=== PATIENT | female | born 1955 | race Caucasian/White ===

== ENCOUNTER → 2019-09-07 | Outpatient (CLI) | payer MEDICARE, OTHER ==
[~2019-09-07] MED LIST: ASPI81EC PO; Adult Low Dose81 MG PO; Augmentin 875-1 EACH PO; DULO30; DULO60; HYDACE10B PO; HYDACE5 PO; HYDR1TAB94 PO; LISI20 PO; Multivitamin1 EAC1 PO; Norco 5-325 Ta1 EACH PO; PANT20 PO; PRAV20; PRAV20 PO; Percocet 5-3251 EACH PO; SIMV20; TELM40; Zofran Odt4 MG SL
[2019-09-09 08:08] LABS: Stool Occult Bld Immuno 1 Negative (NEGATIVE)
== END | disposition home or self-care (01) ==
LOC: LAB SHORT 12:00 → LAB 12:00
PROVIDERS: Nurse Practitioner Family
DX: Z12.11 Encounter for screening for malignant neoplasm of colon (principal)
CPT/HCPCS: G0328

== ENCOUNTER 2019-09-09 15:44 | Emergency (ER) | payer MEDICARE, OTHER ==
[~2019-09-09] VITALS: Ht 167.6 cm; Wt 65.8 kg
[~2019-09-09 15:44] MED LIST changes: -HYDR1TAB94 PO; -Norco 5-325 Ta1 EACH PO
[2019-09-09] MEDS ORDERED: Norco 5-325 Ta1 EACH PO (18:35)
[2019-09-09] MEDS ORDERED: HYDR1TAB94 PO (18:36)
== END 2019-09-09 18:40 | disposition home or self-care (01) ==
LOC: ER 15:44
DX: I73.9 Peripheral vascular disease, unspecified (principal); M79.675 Pain in left toe(s); I10 Essential (primary) hypertension; E78.00 Pure hypercholesterolemia, unspecified; Z88.8 Allergy status to other drugs, medicaments and biological substances; Z79.899 Other long term (current) drug therapy; Z87.891 Personal history of nicotine dependence
CPT/HCPCS: 93926; 99283-25

== ENCOUNTER 2021-09-03 10:02 | Inpatient (IN) | payer MEDICARE, OTHER ==
[~2021-09-03] VITALS: Ht 167.6 cm; Wt 65.0 kg
[~2021-09-03 10:02] MED LIST changes: +AMLO5 PO; +BUPR150ER PO; +CLOP75 PO; +GABA300 PO; +HYDR1TAB94 PO; +Norco 5-325 Ta1 EACH PO; +PROAIR DIGIHAL90 MCG INH
[2021-09-03 11:27] LABS: Alanine Aminotransfer (ALT/SGP 14 U/L (12-78); Albumin, Blood 3.7 g/dL (3.4-5.0); Alk Phos 57 U/L (50-136); Anion Gap 10 mmol/L (6-16); Aspartate Aminotrans (AST/SGOT 10 U/L (12-37); Bilirubin, Total 0.3 mg/dL (0.1-1.0); Blood Urea Nitrogen 59 mg/dL (8-24); Bun/Creatinine Ratio 17.8 (12.0-20.0); CO2, Blood 19 mmol/L (21-32); Calcium, Blood 8.8 mg/dL (8.5-10.1); Chloride, Blood 105 mmol/L (98-108); Creatinine, Blood 3.31 mg/dL (0.40-1.00); Ethanol (Alcohol), Blood, Med <3 mg/dL; Globulin, Blood 3.6 g/dL (2.2-4.0); Glomerular Filtration Rate 14 (60-); Glucose, Blood 106 mg/dL (70-99); Potassium, Blood 4.4 mmol/L (3.5-5.5); Sodium, Blood 134 mmol/L (136-145); Total Protein, Blood 7.3 g/dL (6.4-8.2)
[2021-09-03 12:01] LABS: BASOPHILS ABSOLUTE AUTO 0.03 K/mm3 (0.00-0.23); BASOPHILS PERCENT AUTO 0 % (0-2); EOSINOPHILS ABSOLUTE AUTO 0.16 K/mm3 (0.00-0.68); EOSINOPHILS PERCENT AUTO 2 % (0-6); IMMATURE GRAN ABSOLUTE AUTO 0.08 K/mm3 (0.00-0.10); IMMATURE GRAN PERCENT AUTO 1 % (0-1); LYMPHOCYTES ABSOLUTE AUTO 0.79 K/mm3 (0.84-5.20); LYMPHOCYTES PERCENT AUTO 10 % (21-46); MONOCYTES ABSOLUTE AUTO 0.96 K/mm3 (0.16-1.47); MONOCYTES PERCENT AUTO 12 % (4-13); Mean Corpuscular HGB 26.1 pg (26.0-34.0); Mean Corpuscular Volume 90 fL (80-100); Mean Platelet Volume 8.9 fL (9.1-12.4); NEUTROPHILS ABSOLUTE AUTO 5.86 K/mm3 (1.96-9.15); NEUTROPHILS PERCENT AUTO 74 % (41-73); NRBC ABSOLUTE 0.07 K/mm3 (0.00-0.02); NRBC Auto 0.9 /100 WBC (0.0-0.2); Platelet Count 639 K/mm3 (150-400); RDW Coefficient Variation 24.8 % (11.7-14.2); Red Blood Cell Count 1.19 M/mm3 (3.80-5.20); White Blood Cell Count 7.88 K/mm3 (4.00-11.30)
[2021-09-03 12:04] LABS: Hemoglobin 3.1 g/dL (11.5-16.0)
[2021-09-03 12:05] LABS: Hematocrit 10.7 % (33.0-51.0)
[2021-09-03] MEDS ORDERED: CYCL10 PO (12:20)
[2021-09-03] MEDS ORDERED: GABA300 PO (12:21)
[2021-09-03 13:50] LABS: U Amphetamine Screen Not Detected; U Barbituate Screen Not Detected; U Benzodiazapine Screen Not Detected; U Buprenorphine Screen Not Detected; U Cannabinoids Screen DETECTED; U Cocaine Screen Not Detected; U Methadone Screen Not Detected; U Methamphetamine Screen Not Detected; U Opiates Screen Not Detected; U Oxycodone Screen Not Detected; U Phencyclidine Screen Not Detected; U Propoxyphene Screen Not Detected
[2021-09-03 15:18] LABS: International Normalized Ratio 1.01; Prothrombin Time Results 10.6 Sec (9.7-11.5)
[2021-09-03 18:04] LABS: Influenza A, PCR NEGATIVE (NEGATIVE); Influenza B, PCR NEGATIVE (NEGATIVE); Resp Syncytial Virus, PCR NEGATIVE (NEGATIVE); SARS-Cov-2 (COVID-19) PCR, MMC NEGATIVE (NEGATIVE)
--- NOTE | 2021-09-03 18:27 | NUR ---
ALERT AND ORIENTED, MAKES NEEDS KNOWN, CALL LIGHT WITH IN REACH, DENIES NV, DIZZYNESS. LEFT SIDED DEFICIT RESOLVED, EQUAL GRASP, EQUAL FACIAL EXPRESIONS, EQUAL STRENGTH IN LEFT ARM AND LEG. LS CLEAR 98% ON RA. HTN SBP 160-180S, LAST BM 09/02/21. RECEIVED TWO UNITS PRBC, ONE MORE TO BE GIVEN PER DR MORLEY, H&H 2 HOURS AFTER IT IS COMPLETED, NPO, ACTIVE BT. NEGATIVE COVID, NO CTAs DONE DUE TO PATIENTS CREATINIE OF 3.31. DR MORLEY TO LILY OGDEN, WILL RELAY TO PM RN, WCTM
--- NOTE | 2021-09-03 19:17 | NUR ---
REPORTED PATIENT REQUEST FOR A NICOTINE PACTH, SBP 160-180S, LEFT FLANK PAIN TO DR MEMBRENO. NEW ORDERS FOR NICOTINE PATCH, FENTANYL, AND HYDRALAZINE. DR MORLEY ROUNDED, PATIENT CAN HAVE CLEAR LIQUID DIET UNTIL MIDNIGHT, FROM MIDNIGHT UNTIL 09/04/21 1200 SHE CAN HAVE MUCH WATER SHE WOULD LIKE, RELAYED TO PM RN
[2021-09-03 23:53] LABS: Hemoglobin 7.3 g/dL (11.5-16.0)
[2021-09-04 03:11] LABS: Hematocrit 22.7 % (33.0-51.0); Hemoglobin 7.6 g/dL (11.5-16.0); Mean Corpuscular HGB 28.6 pg (26.0-34.0); Mean Corpuscular HGB Conc 33.5 g/dL (31.5-36.5); Mean Platelet Volume 8.1 fL (9.1-12.4); NRBC ABSOLUTE 0.08 K/mm3 (0.00-0.02); NRBC Auto 0.8 /100 WBC (0.0-0.2); Platelet Count 412 K/mm3 (150-400); RDW Coefficient Variation 18.9 % (11.7-14.2); RDW Standard Deviation 57.5 fL (35.1-46.3); Red Blood Cell Count 2.66 M/mm3 (3.80-5.20); White Blood Cell Count 10.34 K/mm3 (4.00-11.30)
[2021-09-04 03:13] LABS: Mean Corpuscular Volume 85 fL (80-100)
[2021-09-04 03:26] LABS: Bun/Creatinine Ratio 18.6 (12.0-20.0); Calcium, Blood 8.9 mg/dL (8.5-10.1); Creatinine, Blood 2.79 mg/dL (0.40-1.00)
--- NOTE | 2021-09-04 06:02 | NUR ---
END OF SHIFT SUMMARY: PT REMAINS AOX4, VERY PLEASANT AND COOPERATIVE. PT DID COMPLAIN OF SEVERE HEADACHE, BACK PAIN AND LEFT FLANK PAIN. GAVE PRN ORAL AND IV PAIN MEDICATION TO HELP ALLEVIATE DISOCMFORT AND PAIN. NO LEFT SIDED DEFICIT OR WEAKNESS, EQUAL STRENGTH AND SYMMENTRY BILATERAL. ON RA, HYPERTENSIVE DESPITE HYDRALAZINE GIVEN. PT WAS ABLE TO VOID, CLOUDY YELLOW OUTPUT. NPO FOR UPCOMING PROCEDURE. SALINE LOCKED.
--- NOTE | 2021-09-04 08:58 | NUR ---
ASSUMED CARE OF PATIENT: AOX4, COMPLAINS OF 8/10 HEADACHE PAIN, 50MCG FENT GIVEN, NO BM OVERNIGHT, BP HTN 160S, 10MG HYDRALAZINE GIVEN, VSS OTHERWISE ON RA, LUNGS CLEAR, REMAINS NPO, RECENT HGB 7.6, EGD PLANNED FOR 1300, WILL CONTINUE TO MONITOR.
[2021-09-04 10:01] LABS: Percent Saturation 71.7 % (15.0-50.0)
[2021-09-04 10:28] LABS: Hematocrit 23.8 % (33.0-51.0); Hemoglobin 7.9 g/dL (11.5-16.0); Mean Corpuscular HGB 28.3 pg (26.0-34.0); Mean Corpuscular HGB Conc 33.2 g/dL (31.5-36.5); Mean Corpuscular Volume 85 fL (80-100); Mean Platelet Volume 8.1 fL (9.1-12.4); NRBC ABSOLUTE 0.08 K/mm3 (0.00-0.02); NRBC Auto 0.9 /100 WBC (0.0-0.2); Platelet Count 448 K/mm3 (150-400); RDW Coefficient Variation 18.9 % (11.7-14.2); RDW Standard Deviation 57.7 fL (35.1-46.3); Red Blood Cell Count 2.79 M/mm3 (3.80-5.20); White Blood Cell Count 9.26 K/mm3 (4.00-11.30)
--- NOTE | 2021-09-04 15:04 | NUR ---
INTO SDS VIA GURNEY FROM ICU ROOM.PT MED W/TELE STATUS PER END MAKER. History, Chart, Medications and Allergies reviewed before start of procedure.Patient confirms NPO status and agrees with scheduled surgery.WHEEZES T/O LEFT LOBE.ANESTHESIA NOTIFIED AND ORDERS PLACED.PT A&O X4.
--- NOTE | 2021-09-04 15:17 | NUR ---
09/04/21 1517 SAAD NEAL History, Chart, Medications and Allergies reviewed before start of procedure. MONITOR INTACT WITH CONTINUOUS PULSE OXIMETRY AND INTERMITTENT BP. 3-LEAD EKG REVIEWED WITH PHYSICIAN PRIOR TO START OF PROCEDURE. O2 VIA POM INTACT THROUGHOUT SEDATION/PROCEDURE. GENERAL WITH DR. VALENCIA.
--- NOTE | 2021-09-04 15:24 | NUR ---
PT RING REMOVED AND PLACED IN LABELED BAG IN PT CHART
--- NOTE | 2021-09-04 16:15 | NUR ---
DR. DALTON CONSULTING WITH PT.
--- NOTE | 2021-09-04 17:32 | NUR ---
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
[2021-09-05 05:22] LABS: Hematocrit 22.4 % (33.0-51.0); Hemoglobin 7.4 g/dL (11.5-16.0); Mean Corpuscular HGB 28.1 pg (26.0-34.0); Mean Corpuscular Volume 85 fL (80-100); Mean Platelet Volume 8.1 fL (9.1-12.4); NRBC ABSOLUTE 0.04 K/mm3 (0.00-0.02); NRBC Auto 0.5 /100 WBC (0.0-0.2); Platelet Count 433 K/mm3 (150-400); RDW Standard Deviation 57.1 fL (35.1-46.3); Red Blood Cell Count 2.63 M/mm3 (3.80-5.20); White Blood Cell Count 7.99 K/mm3 (4.00-11.30)
[2021-09-05 05:45] LABS: Albumin, Blood 3.3 g/dL (3.4-5.0); Albumin/Globulin Ratio 1.1 (0.8-1.8); Bilirubin, Total 0.5 mg/dL (0.1-1.0); Bun/Creatinine Ratio 21.2 (12.0-20.0); Calcium, Blood 8.8 mg/dL (8.5-10.1); Creatinine, Blood 1.98 mg/dL (0.40-1.00); Potassium, Blood 4.5 mmol/L (3.5-5.5); Total Protein, Blood 6.3 g/dL (6.4-8.2)
--- NOTE | 2021-09-05 08:10 | NUR ---
ADVISED PATIENT WAS ON PROTONIX BID YESTERDAY AND GOT MORNING DOSE THEN WAS CANCELLED. MD TO CHECK CHART.
[2021-09-05 08:51] LABS: Percent Saturation 23.4 % (15.0-50.0)
--- NOTE | 2021-09-05 14:16 | NUR ---
PATIENT DAUGHTER,VICKEY, UPDATED.
--- NOTE | 2021-09-05 16:58 | NUR ---
ALERT. ORIENTED. PATIENT RING THAT WAS TAKEN OFF PRIOR TO PROCEDURE GIVEN BACK TO PATIENT. PATIENT C/O HEADACHE WITH CAFFEINE HELPING. IV'S X 2 PATENT WITH ONE INFUSING LR AT 100ML/HR. INDEPENDENT IN ROOM. UNLABORED RESPIRATIONS. NO B.M TODAY. ADVISED TO NOT FLUSH WHEN SHE DOES GO SO STAFF CAN CHECK FOR ANY BLOOD. GOOD APPETITE. WCTM
[2021-09-06 05:00] LABS: Hematocrit 21.7 % (33.0-51.0); Hemoglobin 6.8 g/dL (11.5-16.0); Mean Corpuscular HGB 27.4 pg (26.0-34.0); Mean Corpuscular HGB Conc 31.3 g/dL (31.5-36.5); Mean Corpuscular Volume 88 fL (80-100); NRBC ABSOLUTE 0.04 K/mm3 (0.00-0.02); NRBC Auto 0.5 /100 WBC (0.0-0.2); Platelet Count 366 K/mm3 (150-400); RDW Coefficient Variation 18.7 % (11.7-14.2); RDW Standard Deviation 58.5 fL (35.1-46.3); Red Blood Cell Count 2.48 M/mm3 (3.80-5.20); White Blood Cell Count 8.12 K/mm3 (4.00-11.30)
[2021-09-06 05:10] LABS: Albumin, Blood 3.1 g/dL (3.4-5.0); Bilirubin, Total 0.4 mg/dL (0.1-1.0); Bun/Creatinine Ratio 23.1 (12.0-20.0); Calcium, Blood 8.7 mg/dL (8.5-10.1); Creatinine, Blood 1.69 mg/dL (0.40-1.00); Globulin, Blood 3.2 g/dL (2.2-4.0); Potassium, Blood 4.3 mmol/L (3.5-5.5); Total Protein, Blood 6.3 g/dL (6.4-8.2)
[2021-09-06 05:12] LABS: Source, Urine Voided
[2021-09-06 05:17] LABS: Bilirubin, Urine Neg (Neg); Blood, Urine 1+ (Neg); Glucose Qualitative, Urine Neg (Neg); Ketones, Urine Neg (Neg); Leukocyte Esterase, Urine Neg (Neg); Nitrite, Urine Neg (Neg); Protein, Urine 1+ (Neg); Specific Gravity, Urine 1.015 (1.003-1.022); Urobilinogen, Urine NORM (Normal)
--- NOTE | 2021-09-06 05:17 | NUR ---
SHIFT SUMMARY: URINE IS FOUL SMELLING. DR SARAH IS NITIFIED AND ORDER FOR URINE SAMPLE IS OBTAINED AND SAMPLE IS SENT.
[2021-09-06 05:24] LABS: Appearance, Urine Hazy (Clear); Bacteria Mod /hpf; Color, Urine Yellow (P-Yellow); Red Blood Cells, Urine 0-2 /hpf (0-2); Squamous Epithelial Cells Not Seen /hpf (Few); White Blood Cells, Urine Not Seen /hpf (0-5)
--- NOTE | 2021-09-06 10:52 | NUR ---
PER DR.OLSON EUBANKS TO STOP MAINTENANCE IV FLUIDS. TO CHECK B.P MEDS.
--- NOTE | 2021-09-06 17:34 | NUR ---
ALERT. ORIENTED. NO OBVIOUS ADVERSE REACTION TO ONE UNIT OF BLOOD. PATIENT TOLERATED WELL. IV X 2 PATENT. HAD B.M LAST NIGHT AND PER NIGHT RN NORMAL WITHOUT ANY EVIDENCE OF BLOOD. PATIENT AWARE TO NOT FLUSH TOILET AND LET STAFF CHECK IF SHE HAS A B.M.UNLABORED RESPIRATIONS. ABLE TO MAKE NEEDS KNOWN. [facility]
[2021-09-07 04:51] LABS: Hematocrit 27.5 % (33.0-51.0); Hemoglobin 9.1 g/dL (11.5-16.0); Mean Corpuscular HGB 28.3 pg (26.0-34.0); Mean Corpuscular HGB Conc 33.1 g/dL (31.5-36.5); Mean Corpuscular Volume 86 fL (80-100); Mean Platelet Volume 8.1 fL (9.1-12.4); NRBC ABSOLUTE 0.03 K/mm3 (0.00-0.02); NRBC Auto 0.3 /100 WBC (0.0-0.2); Platelet Count 377 K/mm3 (150-400); RDW Coefficient Variation 17.7 % (11.7-14.2); RDW Standard Deviation 54.1 fL (35.1-46.3); Red Blood Cell Count 3.21 M/mm3 (3.80-5.20); White Blood Cell Count 10.22 K/mm3 (4.00-11.30)
[2021-09-07 05:09] LABS: Bun/Creatinine Ratio 21.4 (12.0-20.0); Calcium, Blood 9.1 mg/dL (8.5-10.1); Creatinine, Blood 2.01 mg/dL (0.40-1.00); Potassium, Blood 4.3 mmol/L (3.5-5.5)
[2021-09-07] MEDS ORDERED: GABA100 PO (13:47)
[2021-09-07] MEDS ORDERED: Nicoderm Cq1 EAC1 TOP (13:47)
[2021-09-07] MEDS ORDERED: PANT40 PO (13:48)
--- NOTE | 2021-09-07 15:37 | NUR ---
DISCHARGE SUMMARY PATIENT IS ALERT AND ORIENTED X4. PATIENT IS IND IN ROOM. PATIENT HAS HAD NO ACUTE EVENTS THIS SHIFT. VITAL SIGNS REVIEWED. BOTH IVS WERE REMOVED WNL. PATIENT WAS WHEELED OUT BY NAE HANSON TO AWAITING SON IN PERSONAL VEHICLE WNL.
== END 2021-09-07 15:31 | disposition home or self-care (01) | DRG 378 ==
LOC: ER 10:02 → MEDS 13:43 → ICUW 13:43 → ICUE 13:43 → MEDS 09-04 17:05
PROVIDERS: Emergency Medicine; Internal Medicine; Internal Medicine Critical Care Medicine; Internal Medicine Gastroenterology; Physician Assistant; ADMIT Internal Medicine
PROC: 0W3P8ZZ Control Bleeding in Gastrointestinal Tract, Via Natural or Artificial Opening Endoscopic (ICD-10-PCS; 2021-09-04)
PROC: 30233N1 Transfusion of Nonautologous Red Blood Cells into Peripheral Vein, Percutaneous Approach (ICD-10-PCS; principal; 2021-09-04 15:00)
DX: K29.81 Duodenitis with bleeding (principal); D62 Acute posthemorrhagic anemia; N17.9 Acute kidney failure, unspecified; K31.811 Angiodysplasia of stomach and duodenum with bleeding; F10.20 Alcohol dependence, uncomplicated; Z20.822 Contact with and (suspected) exposure to COVID-19; I10 Essential (primary) hypertension; I73.9 Peripheral vascular disease, unspecified; E78.5 Hyperlipidemia, unspecified; M54.16 Radiculopathy, lumbar region; M54.50 Low back pain, unspecified; B19.20 Unspecified viral hepatitis C without hepatic coma; F17.200 Nicotine dependence, unspecified, uncomplicated; I67.9 Cerebrovascular disease, unspecified; G89.29 Other chronic pain; Z90.49 Acquired absence of other specified parts of digestive tract; Z98.890 Other specified postprocedural states; Z98.891 History of uterine scar from previous surgery; Z88.8 Allergy status to other drugs, medicaments and biological substances; Z79.899 Other long term (current) drug therapy; Z86.73 Personal history of transient ischemic attack (TIA), and cerebral infarction without residual deficits
CPT/HCPCS: 0241U; 36415; 36430; 70450; 80048; 80053; 81001; 82140; 82728; 82947; 83540; 83550; 83735; 83880; 85014; 85018; 85025; 85027; 85610; 86850; 86900; 86901; 86923; 87086; 93005; 93010; 96374; 99285-25; A9270; C9113; G0480; J0360; J2001; J2704; J2916; J3010; J7030; J7040; J7120; P9016

== ENCOUNTER 2021-09-18 13:16 | Inpatient (IN) | payer MEDICARE, OTHER ==
[~2021-09-18] VITALS: Ht 165.1 cm; Wt 63.5 kg
[~2021-09-18 13:16] MED LIST changes: +CYCL10 PO; +GABA100 PO; +Nicoderm Cq1 EAC1 TOP; +PANT40 PO
[2021-09-18 15:15] LABS: Albumin, Blood 4.1 g/dL (3.4-5.0); Albumin/Globulin Ratio 1.1 (0.8-1.8); Bilirubin, Total 0.2 mg/dL (0.1-1.0); Bun/Creatinine Ratio 17.4 (12.0-20.0); Calcium, Blood 9.1 mg/dL (8.5-10.1); Creatinine, Blood 3.16 mg/dL (0.40-1.00); Globulin, Blood 3.6 g/dL (2.2-4.0); Potassium, Blood 3.9 mmol/L (3.5-5.5); Total Protein, Blood 7.7 g/dL (6.4-8.2)
[2021-09-18 17:07] LABS: BASOPHILS ABSOLUTE AUTO 0.08 K/mm3 (0.00-0.23); BASOPHILS PERCENT AUTO 1 % (0-2); EOSINOPHILS ABSOLUTE AUTO 0.24 K/mm3 (0.00-0.68); EOSINOPHILS PERCENT AUTO 2 % (0-6); IMMATURE GRAN ABSOLUTE AUTO 0.11 K/mm3 (0.00-0.10); IMMATURE GRAN PERCENT AUTO 1 % (0-1); LYMPHOCYTES ABSOLUTE AUTO 1.54 K/mm3 (0.84-5.20); LYMPHOCYTES PERCENT AUTO 14 % (21-46); MONOCYTES ABSOLUTE AUTO 0.72 K/mm3 (0.16-1.47); MONOCYTES PERCENT AUTO 7 % (4-13); Mean Corpuscular HGB 28.3 pg (26.0-34.0); Mean Corpuscular HGB Conc 32.1 g/dL (31.5-36.5); Mean Corpuscular Volume 88 fL (80-100); Mean Platelet Volume 8.8 fL (9.1-12.4); NEUTROPHILS ABSOLUTE AUTO 8.09 K/mm3 (1.96-9.15); NEUTROPHILS PERCENT AUTO 75 % (41-73); NRBC ABSOLUTE 0.03 K/mm3 (0.00-0.02); NRBC Auto 0.3 /100 WBC (0.0-0.2); Platelet Count 534 K/mm3 (150-400); RDW Coefficient Variation 19.8 % (11.7-14.2); Red Blood Cell Count 1.87 M/mm3 (3.80-5.20); White Blood Cell Count 10.78 K/mm3 (4.00-11.30)
[2021-09-18 17:10] LABS: Hematocrit 16.5 % (33.0-51.0); Hemoglobin 5.3 g/dL (11.5-16.0)
--- NOTE | 2021-09-19 00:42 | NUR ---
ADMISSION: PT IS A/OX4. 1 UNIT OF PRBC WAS ADMINISTERED IN THE ED; THE 2ND UNIT WAS GIVEN ON THE FLOOR. THE PT TOLERATED THE RBCs W/O ANY ADVERSE REACTION. SHE IS NPO @ MN WITH THE EXCEPTION OF SIPS OF H20/ICE CHIPS. SHE WILL BE ENTIRELY NPO AT 1700.
[2021-09-19 06:17] LABS: BASOPHILS ABSOLUTE AUTO 0.14 K/mm3 (0.00-0.23); BASOPHILS PERCENT AUTO 1 % (0-2); EOSINOPHILS ABSOLUTE AUTO 0.44 K/mm3 (0.00-0.68); EOSINOPHILS PERCENT AUTO 4 % (0-6); Hematocrit 21.7 % (33.0-51.0); Hemoglobin 7.3 g/dL (11.5-16.0); IMMATURE GRAN ABSOLUTE AUTO 0.12 K/mm3 (0.00-0.10); IMMATURE GRAN PERCENT AUTO 1 % (0-1); LYMPHOCYTES ABSOLUTE AUTO 1.67 K/mm3 (0.84-5.20); LYMPHOCYTES PERCENT AUTO 15 % (21-46); MONOCYTES PERCENT AUTO 10 % (4-13); Mean Corpuscular HGB 28.5 pg (26.0-34.0); Mean Corpuscular HGB Conc 33.6 g/dL (31.5-36.5); Mean Corpuscular Volume 85 fL (80-100); Mean Platelet Volume 8.7 fL (9.1-12.4); NEUTROPHILS ABSOLUTE AUTO 7.95 K/mm3 (1.96-9.15); NEUTROPHILS PERCENT AUTO 70 % (41-73); NRBC ABSOLUTE 0.05 K/mm3 (0.00-0.02); NRBC Auto 0.4 /100 WBC (0.0-0.2); Platelet Count 492 K/mm3 (150-400); RDW Coefficient Variation 16.8 % (11.7-14.2); RDW Standard Deviation 49.3 fL (35.1-46.3); Red Blood Cell Count 2.56 M/mm3 (3.80-5.20); White Blood Cell Count 11.42 K/mm3 (4.00-11.30)
[2021-09-19 06:48] LABS: Bun/Creatinine Ratio 18.2 (12.0-20.0); Creatinine, Blood 2.85 mg/dL (0.40-1.00); Potassium, Blood 3.4 mmol/L (3.5-5.5)
[2021-09-19 08:17] LABS: Hematocrit 21.9 % (33.0-51.0); Hemoglobin 7.5 g/dL (11.5-16.0)
--- NOTE | 2021-09-19 15:54 | NUR ---
History, Chart, Medications and Allergies reviewed before start of procedure.Patient confirms NPO status and agrees with scheduled surgery. Pre-Op teaching done. Pt verbalizes understanding.
--- NOTE | 2021-09-19 16:36 | NUR ---
09/19/[address] Campos See Anesthesia record DR DYE. Bite Block Placed. Patient to ENDO 1. History, Chart, Medications and Allergies reviewed before start of procedure. MONITOR INTACT WITH CONTINUOUS PULSE OXIMETRY AND INTERMITTENT BP. O2 VIA POM MASK INTACT THROUGHOUT SEDATION/PROCEDURE.
--- NOTE | 2021-09-19 16:44 | NUR ---
SHIFT SUMMARY PATIENT IS ALERT AND ORIENTED X4. PATIENT MAINTAINED ICE CHIPS AND WATER UNTIL 1345, PATIENT MAINTAINED TOTAL NPO AT LEAST 2 HRS BEFORE SCOPE PROCEDURE. PATIENT HAD NO ACUTE EVENTS THIS SHIFT. PATIENT IS INDEPENDENT IN ROOM. VITAL SIGNS REVIEWED. CALL LIGHT IN PLACE. BED IN LOWEST POSITION. WILL MONITOR UNTIL SHIFT CHANGE.
--- NOTE | 2021-09-20 04:03 | NUR ---
PT IS A/OX4 AND INDEPENDENT IN ROOM. CURRENTLY SHE IS ON RA AND NO TELE. SHE IS GOING IN FOR A COLONOSCOPY TODAY AND WILL BE COMPLETELY NPO AT 1300; SHE CAN HAVE H20 & ICE CHIPS UP UNTIL THAT TIME. SHE DID RECEIVE 650 MG OF TYLENOL AT 2100 FOR A HEADACHE, OTHERWISE NO OTHER C/O THIS NOC SHIFT.
[2021-09-20 07:54] LABS: Hematocrit 24.9 % (33.0-51.0); Hemoglobin 8.5 g/dL (11.5-16.0)
[2021-09-20 15:38] LABS: Hematocrit 26.2 % (33.0-51.0); Hemoglobin 8.8 g/dL (11.5-16.0)
--- NOTE | 2021-09-20 16:52 | NUR ---
SHIFT SUMMARY PATIENT DENIES PAIN AND SHORTNESS OF BREATH. PATIENT MEDICATED X1 FOR NAUSEA. PATIENT NPO FOR COLONOSCOPY, EXCEPT FOR GOLYTLE. PATIENT FINISHED THAT AROUND 1530, STOOLS ARE CLEAR AND LIQUID. PATIENT AWAITING TO BE TAKEN FOR COLONOSCOPY. PATIENT IS INDEPENDENT IN ROOM. PATIENT IS PLEASANT AND COOPERATIVE WITH CARE.
--- NOTE | 2021-09-20 18:33 | NUR ---
Ambulatory in pt room. Patient states colon prep results clear. History, Chart, Medications and Allergies reviewed before start of procedure. Patient confirms NPO status and agrees with scheduled surgery.
--- NOTE | 2021-09-20 19:37 | NUR ---
09/20/211935 Jenna Bernal History, Chart, Medications and Allergies reviewed before start of procedure. Patient confirms NPO status and agrees with scheduled surgery. 3-LEAD EKG REVIEWED WITH PHYSICIAN PRIOR TO START OF PROCEDURE. MONITOR INTACT WITH CONTINUOUS PULSE OXIMETRY AND INTERMITTENT BP. MAC CARE BY . SEE PAPER ANESTHSIA RECORD.
[2021-09-20 23:30] LABS: Hematocrit 21.8 % (33.0-51.0); Hemoglobin 7.3 g/dL (11.5-16.0)
--- NOTE | 2021-09-21 05:43 | NUR ---
SHIFT HECTOR 66 YR F ADMITTED ON 09/18/21 FOR GI BLEED. FULL CODE. DURING THIS SHIFT PT WAS RETURNED TO HER ROOM BY A SURGICAL NURSE FOLLOWING A COLONOSCOPY. IT WAS REPORTED TO THIS NURSE THAT PT WAS GIVEN 610 OF PROPOFAL AND MAX SEDATION. SHE HAD 9 POLYPS REMOVED FROM HER COLON. PT WAS FULLY CONSCIENCE WHEN RETURNED TO HER ROOM AND WAS ABLE TO EAT DINNER SHORLY AFTER HER RETURN. PT HAD NO C/O PAIN OR NAUSEAU. PT SLEPT THE REST OF THE SHIFT.
[2021-09-21 10:07] LABS: Hematocrit 22.9 % (33.0-51.0); Hemoglobin 7.7 g/dL (11.5-16.0)
[2021-09-21] MEDS ORDERED: LABE100 PO (11:01)
--- NOTE | 2021-09-21 12:40 | NUR ---
DISCHARGE SUMMARY PT DISCHARGED HOME WHERE SHE LIVES WITH HER DAUGHTER. IV REMOVED PRIOR TO DISCHARGE AND DISCHARGE EDUCATION REVIEWED WITH/SIGNED BY PT. PT TRANSPORTED VIA WHEELCHAIR TO [facility] WHERE HER DAUGHTER MET US WITH RIDE. PERSONAL BELONGINGS TRANSPORTED ALONG WITH PT TO [facility]. MEDICATIONS FAXED IN TO PT PHARMACY. NUMBERS PROVIDED FOR PT TO MAKE FOLLOW UP WITH HER PCP AND FOR GI PROCEEDURE.
== END 2021-09-21 12:30 | disposition home or self-care (01) | DRG 378 ==
LOC: ER 13:16 → ERHOLD 19:45 → MEDS 19:45 → ENPENDDIS 09-21 10:11 → MEDS 09-21 12:30
PROVIDERS: Internal Medicine; Internal Medicine Gastroenterology; Physician Assistant; ADMIT Internal Medicine
PROC: 30233N1 Transfusion of Nonautologous Red Blood Cells into Peripheral Vein, Percutaneous Approach (ICD-10-PCS; principal; 2021-09-18)
PROC: 0DJ08ZZ Inspection of Upper Intestinal Tract, Via Natural or Artificial Opening Endoscopic (ICD-10-PCS; 2021-09-19)
PROC: 0DBL8ZZ Excision of Transverse Colon, Via Natural or Artificial Opening Endoscopic (ICD-10-PCS; 2021-09-20)
PROC: 0DBN8ZZ Excision of Sigmoid Colon, Via Natural or Artificial Opening Endoscopic (ICD-10-PCS; 2021-09-20)
PROC: 0DBP8ZZ Excision of Rectum, Via Natural or Artificial Opening Endoscopic (ICD-10-PCS; 2021-09-20)
PROC: 0DBM8ZZ Excision of Descending Colon, Via Natural or Artificial Opening Endoscopic (ICD-10-PCS; 2021-09-20 16:00)
DX: K31.811 Angiodysplasia of stomach and duodenum with bleeding (principal); N17.9 Acute kidney failure, unspecified; F17.210 Nicotine dependence, cigarettes, uncomplicated; F10.20 Alcohol dependence, uncomplicated; B19.20 Unspecified viral hepatitis C without hepatic coma; E78.5 Hyperlipidemia, unspecified; I12.9 Hypertensive chronic kidney disease with stage 1 through stage 4 chronic kidney disease, or unspecified chronic kidney disease; K44.9 Diaphragmatic hernia without obstruction or gangrene; D63.1 Anemia in chronic kidney disease; G89.29 Other chronic pain; M54.9 Dorsalgia, unspecified; N18.30 Chronic kidney disease, stage 3 unspecified; Z98.890 Other specified postprocedural states; Z90.49 Acquired absence of other specified parts of digestive tract; Z98.891 History of uterine scar from previous surgery; Z88.8 Allergy status to other drugs, medicaments and biological substances; Z79.899 Other long term (current) drug therapy
CPT/HCPCS: 36415; 36430; 80048; 80053; 82272; 85014; 85018; 85025; 86850; 86900; 86901; 86923; 88305; 93005; 93010; 99284-25; A9270; C9113; J2405; J2704; J7030; J7120; P9016

== ENCOUNTER 2021-10-05 13:25 | Day surgery (SDC) | payer MEDICARE, OTHER ==
[~2021-10-05 13:25] MED LIST changes: +LABE100 PO
[2021-10-05 13:34] LABS: Hematocrit 20.4 % (33.0-51.0); Hemoglobin 6.6 g/dL (11.5-16.0); Mean Corpuscular HGB 28.8 pg (26.0-34.0); Mean Corpuscular HGB Conc 32.4 g/dL (31.5-36.5); Mean Corpuscular Volume 89 fL (80-100); Mean Platelet Volume 8.3 fL (9.1-12.4); NRBC ABSOLUTE 0.05 K/mm3 (0.00-0.02); NRBC Auto 0.5 /100 WBC (0.0-0.2); Platelet Count 388 K/mm3 (150-400); RDW Coefficient Variation 20.6 % (11.7-14.2); RDW Standard Deviation 63.8 fL (35.1-46.3); Red Blood Cell Count 2.29 M/mm3 (3.80-5.20)
[2021-10-05 14:26] LABS: BASOPHILS ABSOLUTE MAN 0.21 K/mm3 (0.00-0.23); BASOPHILS PERCENT MAN 2 % (0-2); EOSINOPHILS ABSOLUTE MAN 0.54 K/mm3 (0.00-0.68); EOSINOPHILS PERCENT MAN 5 % (0-6); LYMPHOCYTES ABSOLUTE MAN 1.62 K/mm3 (0.84-5.20); LYMPHOCYTES PERCENT MAN 15 % (21-46); MONOCYTES ABSOLUTE MAN 1.29 K/mm3 (0.16-1.47); MONOCYTES PERCENT MAN 12 % (4-13); NEUTROPHILS ABSOLUTE MAN 7.12 K/mm3 (1.96-9.15); SEG NEUTROPHILS PERCENT MAN 66 % (41-73); TOTAL CELLS COUNTED 100
== END 2021-10-05 18:37 | disposition home or self-care (01) ==
LOC: ATC 13:25 → EDSTATUS 13:26 → ATC 18:37
PROVIDERS: Internal Medicine Gastroenterology
DX: D50.9 Iron deficiency anemia, unspecified (principal); I10 Essential (primary) hypertension; F17.200 Nicotine dependence, unspecified, uncomplicated; Z88.8 Allergy status to other drugs, medicaments and biological substances; Z88.6 Allergy status to analgesic agent
CPT/HCPCS: 36415; 85007; 85027; 86850; 86900; 86901; 86923; J7050; P9016

== ENCOUNTER 2021-10-24 15:31 | Emergency (ER) | payer MEDICARE, OTHER ==
[~2021-10-24] VITALS: Ht 167.6 cm; Wt 60.8 kg
== END 2021-10-24 15:47 | disposition home or self-care (01) ==
LOC: ER 15:31
DX: I10 Essential (primary) hypertension (principal); E78.00 Pure hypercholesterolemia, unspecified; Z86.73 Personal history of transient ischemic attack (TIA), and cerebral infarction without residual deficits; Z88.8 Allergy status to other drugs, medicaments and biological substances; Z79.899 Other long term (current) drug therapy
CPT/HCPCS: 99282

== ENCOUNTER 2022-02-26 07:24 | Emergency (ER) | payer MEDICARE, OTHER ==
[~2022-02-26] VITALS: Ht 167.6 cm; Wt 59.0 kg
[2022-02-26] MEDS ORDERED: LOSA25 PO (07:39)
[2022-02-26] MEDS ORDERED: LABE200 PO (07:40)
[2022-02-26 08:07] LABS: BASOPHILS ABSOLUTE AUTO 0.24 K/mm3 (0.00-0.23); BASOPHILS PERCENT AUTO 2 % (0-2); EOSINOPHILS ABSOLUTE AUTO 0.47 K/mm3 (0.00-0.68); EOSINOPHILS PERCENT AUTO 4 % (0-6); Hematocrit 28.9 % (33.0-51.0); Hemoglobin 9.4 g/dL (11.5-16.0); IMMATURE GRAN ABSOLUTE AUTO 0.17 K/mm3 (0.00-0.10); IMMATURE GRAN PERCENT AUTO 1 % (0-1); LYMPHOCYTES ABSOLUTE AUTO 1.35 K/mm3 (0.84-5.20); LYMPHOCYTES PERCENT AUTO 11 % (21-46); MONOCYTES ABSOLUTE AUTO 1.47 K/mm3 (0.16-1.47); MONOCYTES PERCENT AUTO 12 % (4-13); Mean Corpuscular HGB 29.2 pg (26.0-34.0); Mean Corpuscular HGB Conc 32.5 g/dL (31.5-36.5); Mean Corpuscular Volume 90 fL (80-100); Mean Platelet Volume 8.4 fL (9.1-12.4); NEUTROPHILS ABSOLUTE AUTO 8.12 K/mm3 (1.96-9.15); NEUTROPHILS PERCENT AUTO 69 % (41-73); NRBC ABSOLUTE 0.06 K/mm3 (0.00-0.02); NRBC Auto 0.5 /100 WBC (0.0-0.2); Platelet Count 433 K/mm3 (150-400); RDW Coefficient Variation 22.1 % (11.7-14.2); RDW Standard Deviation 67.7 fL (35.1-46.3); Red Blood Cell Count 3.22 M/mm3 (3.80-5.20); White Blood Cell Count 11.82 K/mm3 (4.00-11.30)
[2022-02-26 08:26] LABS: Albumin, Blood 3.9 g/dL (3.4-5.0); Albumin/Globulin Ratio 0.9 (0.8-1.8); Bilirubin, Total 0.5 mg/dL (0.1-1.0); Bun/Creatinine Ratio 14.7 (12.0-20.0); Calcium, Blood 5.1 mg/dL (8.5-10.1); Creatinine, Blood 3.41 mg/dL (0.40-1.00); Globulin, Blood 4.3 g/dL (2.2-4.0); Potassium, Blood 3.6 mmol/L (3.5-5.5); Total Protein, Blood 8.2 g/dL (6.4-8.2)
== END 2022-02-26 10:04 | disposition home or self-care (01) ==
LOC: ER 07:24
PROVIDERS: Emergency Medicine
DX: E83.51 Hypocalcemia (principal); N19 Unspecified kidney failure; I10 Essential (primary) hypertension; Z79.899 Other long term (current) drug therapy; Z88.6 Allergy status to analgesic agent; Z88.8 Allergy status to other drugs, medicaments and biological substances
CPT/HCPCS: 36415; 80053; 85025; J0610; J7030

== ENCOUNTER 2022-02-26 10:17 | Inpatient (IN) | payer MEDICARE, OTHER ==
[~2022-02-26] VITALS: Ht 167.6 cm; Wt 67.1 kg
[~2022-02-26 10:17] MED LIST changes: +LABE200 PO; +LOSA25 PO
--- NOTE | 2022-02-26 18:23 | NUR ---
SHIFT SUMMARY PT UP FROM [facility]ART CENTER FOLLOWING DIALYSIS CATHETER PLACEMENT. PT ALERT AND ORIENTED, FOLLOWS COMMANDS. PT RECEIVED FIRST ROUND OF HEMODIALYSIS TODAY, TOLERATED. CA REPLACEMENT PER ORDERS. WILL CONTINUE TO MONITOR.
--- NOTE | 2022-02-27 04:56 | NUR ---
MANAGER CHEMICAL SUMMARY ADMITTED FOR RENAL FAILURE. THE PATIENT IS A FULL CODE. SHE HAS BEEN INDEPENDENT IN THE ROOM WITHOUT DIFFICULTY. STEADY GAIT. THE PATIENT HAS BEEN SINUS ON TELE. MEDICATED X1 FOR PAIN AT THE START OF THE SHIFT WITH IMPROVEMENT. PT REPORTS FEELING RESTLESS TONIGHT BUT DID NOT GET UP UNTIL VS TAKEN THIS AM. BP WAS 184/91 AND SHE WAS MEDICATED WITH HYDRALAZINE. PT REPORTED FEELING FLUSHED AND ANXIOUS AN HOUR LATER AND BP WAS RETAKEN AND IT WAS 189/83. PT REFUSING ANY OTHER HYDRALAZINE "BECAUSE I DON'T LIKE THE WAY I FEEL."
[2022-02-27 05:17] LABS: Hematocrit 30.2 % (33.0-51.0); Hemoglobin 9.8 g/dL (11.5-16.0)
[2022-02-27 05:44] LABS: Albumin, Blood 3.9 g/dL (3.4-5.0); Anion Gap 11 mmol/L (6-16); Blood Urea Nitrogen 25 mg/dL (8-24); Bun/Creatinine Ratio 11.4 (12.0-20.0); CO2, Blood 23 mmol/L (21-32); Chloride, Blood 103 mmol/L (98-108); Glomerular Filtration Rate 24 (60-); Glucose, Blood 93 mg/dL (70-99); Magnesium, Blood 1.8 mg/dL (1.6-2.4); Potassium, Blood 3.4 mmol/L (3.5-5.5); Sodium, Blood 137 mmol/L (136-145)
[2022-02-27 05:49] LABS: Calcium, Blood 7.5 mg/dL (8.5-10.1)
--- NOTE | 2022-02-27 17:23 | NUR ---
SHIFT SUMMARY PATIENT DENIES PAIN, NAUSE, AND SHORTNESS OF BREATH. PATIENT IS IND IN ROOM. PATIENT HAD DIALYSIS TODAY. PATIENT TOLERATED WELL. PATIENT EATING AND DRINKING WELL. PATIENT CRAVING NICOTINE, DR. KWOK NOTIFIED, NEW ORDERS FOR NICOTINE PATCH. PATIENT EAGER TO GO HOME. PATIENT FAMILY VISITED IN AFTERNOON. EDUCATED FAMILY ABOUT A RENAL DIET, GAVE PRINTED INFORMATION WELL. PATIENT IS PLEASANT AND COOPERATIVE WITH CARE.
--- NOTE | 2022-02-28 04:25 | NUR ---
SHIFT SUMMARY NO ACUTE CHANGES TO PT CONDITION. PT RESTING AND SLEEPING MOST OF THE NIGHT. PT HAS HAD NO COMPLAINTS. CALL LIGHT IS WITHIN HER REACH.
[2022-02-28 05:34] LABS: Hematocrit 28.6 % (33.0-51.0); Hemoglobin 9.3 g/dL (11.5-16.0)
[2022-02-28 06:07] LABS: Albumin, Blood 3.7 g/dL (3.4-5.0); Anion Gap 11 mmol/L (6-16); Blood Urea Nitrogen 26 mg/dL (8-24); CO2, Blood 25 mmol/L (21-32); Calcium, Blood 8.4 mg/dL (8.5-10.1); Chloride, Blood 102 mmol/L (98-108); Creatinine, Blood 2.59 mg/dL (0.40-1.00); Glomerular Filtration Rate 20 (60-); Glucose, Blood 94 mg/dL (70-99); Potassium, Blood 3.6 mmol/L (3.5-5.5); Sodium, Blood 138 mmol/L (136-145)
[2022-02-28 09:10] LABS: Albumin, Blood 4.1 g/dL (3.4-5.0); Anion Gap 9 mmol/L (6-16); Blood Urea Nitrogen 26 mg/dL (8-24); CO2, Blood 26 mmol/L (21-32); Calcium, Blood 8.9 mg/dL (8.5-10.1); Chloride, Blood 100 mmol/L (98-108); Glomerular Filtration Rate 20 (60-); Glucose, Blood 99 mg/dL (70-99); Magnesium, Blood 1.9 mg/dL (1.6-2.4); Phosphorus, Blood 2.9 mg/dL (2.5-4.9); Potassium, Blood 3.6 mmol/L (3.5-5.5); Sodium, Blood 135 mmol/L (136-145)
--- NOTE | 2022-02-28 09:11 | NUR ---
REPORT FROM PM VALENTIN MCPHERSON, NO DOSTRESS, MAKES NEEDS KNOWN, CALL LIGHT WITH IN REACH, TO DIALYSIS NOW, WCTM
--- NOTE | 2022-02-28 11:13 | NUR ---
PATIENT ON HER WAY BACK FROM DIALYSIS
--- NOTE | 2022-02-28 17:26 | NUR ---
ALERT AND ORIENTED, MAKES NEEDS KNOWN, INDEPENDENT IN ROOM, CALL LIGHT WITH IN REACH, FAMILY VISITED EARLIER, DIALYSIS TODAY, PATIENT HAS A DIALYSIS CHAIR AVAILABLE BUT INTAKE IS NOT UNTIL FRIDAY, PATIENT TO STAY FOR DAILY DIALYSIS AND GO HOME ON FRIDAY AFTER DIALYSIS, SO THE INTAKE IS THE NEXT DAY, LS DIM BASES, CLEARS CONGESTIONS, STRONG COUGH, GOOD APPETITE, NO SWALLOWING DIFFICULTY, DENIES CP. HTN 180S TODAY, MEDICATED WITH SCHEDULED MEDS AND PRN HYDRALAZINE, SBP 130. MINIMAL TO NO OUTPUT, COOPERATIVE TO CARE, CALL LIGTH WITH IN REACH, WILL RELAY TO PM RN, DEXTERTM
--- NOTE | 2022-03-01 04:27 | NUR ---
SHIFT SUMMARY PT IS ANXIOUS ABOUT TEST RESULTS AND EXPRESSED SOME CONCERN ABOUT NOT BEING ABLE TO GO HOME UNTIL DIALYSIS HAD A PLACE FOR HER. SHE IS UP INDEPENDENT IN HER ROOM. SHE ANAHY PAIN OR SOB. CATHETER SIDE IT C/D/I AND FREE OF SIGNS OF INFECTION. PT WILL HAVE DIALYSIS AGAIN TOMORROW. BED IN LOWEST POSITION AND CALL LIGHT IN REACH
[2022-03-01 05:15] LABS: Hematocrit 28.3 % (33.0-51.0)
[2022-03-01 06:19] LABS: Albumin, Blood 3.7 g/dL (3.4-5.0); Anion Gap 7 mmol/L (6-16); Blood Urea Nitrogen 23 mg/dL (8-24); CO2, Blood 28 mmol/L (21-32); Calcium, Blood 9.2 mg/dL (8.5-10.1); Chloride, Blood 101 mmol/L (98-108); Creatinine, Blood 2.55 mg/dL (0.40-1.00); Glomerular Filtration Rate 20 (60-); Glucose, Blood 93 mg/dL (70-99); Magnesium, Blood 1.8 mg/dL (1.6-2.4); Potassium, Blood 3.9 mmol/L (3.5-5.5); Sodium, Blood 136 mmol/L (136-145)
--- NOTE | 2022-03-01 18:12 | NUR ---
SHIFT SUMMARY: NO ACUTE EVENTS. DID NOT HAVE DIALYSIS TODAY. DENIED PAIN. BREATH SOUNDS COARSE IN BILATERAL LL; STATED NICOTINE PATCH IS HELPING GREATLY. APPETITE OK. IS PASSING SMALL AMOUNTS OF URINE. HEPARIN SQ D/C'D PER PATIENT REQUEST AND HX OF GIB; IS AMBULATING. HAD VISIT FROM HER SON AND HIS FAMILY TODAY.
--- NOTE | 2022-03-02 04:01 | NUR ---
SHIFT SUMMARY PT STATES SHE FEELS MUCH BETTER TODAY AFTER NOT HAVING TO HAVE DIALYSIS AND HAVING THE RELIEF OF NOT TAKEN BLOOD THINNERS. PT SEEMS LESS ANXIOUS AND MORE RESTFUL THIS EVENING. SHE DENIES PAIN AND LOOKS FORWARD TO GOING HOME ON FRIDAY. BED IN LOSWET POSITION AND CALL LIGHT IN REACH
[2022-03-02 05:52] LABS: Hematocrit 26.7 % (33.0-51.0); Hemoglobin 8.7 g/dL (11.5-16.0)
[2022-03-02 06:13] LABS: Albumin, Blood 3.6 g/dL (3.4-5.0); Anion Gap 12 mmol/L (6-16); Blood Urea Nitrogen 36 mg/dL (8-24); Bun/Creatinine Ratio 9.2 (12.0-20.0); CO2, Blood 23 mmol/L (21-32); Calcium, Blood 8.6 mg/dL (8.5-10.1); Chloride, Blood 102 mmol/L (98-108); Glomerular Filtration Rate 12 (60-); Glucose, Blood 86 mg/dL (70-99); Magnesium, Blood 2.2 mg/dL (1.6-2.4); Phosphorus, Blood 3.8 mg/dL (2.5-4.9); Potassium, Blood 3.7 mmol/L (3.5-5.5); Sodium, Blood 137 mmol/L (136-145)
--- NOTE | 2022-03-02 17:53 | NUR ---
SHIFT SUMMARY: NO ACUTE EVENTS. DENIED PAIN. INDEPENDENT IN ROOM. HAD NO COMPLAINTS, JUST BORED, WANTS TO GO HOME. PER SANDY ACUÑA RN, PT'S HEB B LABS HAVE NOT RESULTED YET, WHICH MAY IMPACT PT'S DISCHARGE AND INTAKE AT [facility] ON FRIDAY. VALENTIN SCHOFIELD CALLED THE LAB IN [place] WHERE LABS WERE SENT AND WAS TOLD THAT IT MAY TAKE UNTIL MAR 06- TO GET THE REST OF THE RESULTS. THE PATIENT IS NOT AWARE OF THIS DEVELOPMENT.
--- NOTE | 2022-03-03 04:47 | NUR ---
03/02/22 2106 PT LYING IN BED, DENIES DISCOMFORT AT THIS TIME. DECLINED SCD'S. REQUESTING SOMETHING FOR SLEEP. WILL SPEAK WITH AND F/U ON ANY ORDERS NO OTHER APPARENT SIGNS OF DISTRESS. CALL LIGHT IS IN REACH. 2253 CALLED , GOT ORDERS FOR MELATONIN. ADMINISTERED. WILL EVAL FOR EFFECT. NO OTHER APPARENT SIGNS OF DISTRESS. CALL LIGHT IS IN REACH. 03/03/22 0200 PT LYING IN BED, EYES CLOSED, APPEARS TO BE RESTING. BREATHING IS EVEN, UNLABORED. NO APPARENT SIGNS OF DISTRESS. CALL LIGHT IS IN REACH. 0400 PT SITTING UP IN BED, AWAKE, DENIES NEED FOR ANYTHING AT THIS TIME. SHE IS GOING TO ATTEMPT TO GET SOME MORE SLEEP. NO APPARENT SIGNS OF DISTRESS. CALL LIGHT IS IN REACH.
--- NOTE | 2022-03-03 04:50 | NUR ---
PT IS AAO X 4, ON RA. DENIED ANY DISCOMFORT FOR THIS SHIFT. DECLINED SCD'S.
[2022-03-03 06:06] LABS: Hematocrit 26.4 % (33.0-51.0); Hemoglobin 8.5 g/dL (11.5-16.0)
[2022-03-03 06:28] LABS: Albumin, Blood 3.5 g/dL (3.4-5.0); Anion Gap 10 mmol/L (6-16); Blood Urea Nitrogen 30 mg/dL (8-24); Bun/Creatinine Ratio 8.8 (12.0-20.0); CO2, Blood 25 mmol/L (21-32); Calcium, Blood 9.3 mg/dL (8.5-10.1); Chloride, Blood 104 mmol/L (98-108); Glomerular Filtration Rate 14 (60-); Glucose, Blood 86 mg/dL (70-99); Phosphorus, Blood 3.9 mg/dL (2.5-4.9); Potassium, Blood 3.7 mmol/L (3.5-5.5); Sodium, Blood 139 mmol/L (136-145)
--- NOTE | 2022-03-03 06:39 | NUR ---
PT LYING IN BED, EYES CLOSED, APPEARS TO BE RESTING. BREATHING IS EVEN, UNLABORED. NO APPARENT SIGNS OF DISTRESS. CALL LIGHT IS IN REACH. NO OTHER CHANGES THIS SHIFT.
--- NOTE | 2022-03-03 07:05 | NUR ---
PATIENT'S HEPATITIS B LABS HAVE RESULTED PER Anette DELGADO RN.
[2022-03-03] MEDS ORDERED: LOSA50 PO (11:46)
[2022-03-03] MEDS ORDERED: LABE100 PO (11:46)
[2022-03-03] MEDS ORDERED: Nicoderm Cq1 EAC1 TOP (11:47)
[2022-03-03] MEDS ORDERED: NICO2 PO (11:48)
--- NOTE | 2022-03-03 12:23 | NUR ---
PATIENT DISCHARGED TO HOME WITH HER FAMILY. IV SALINE LOCK REMOVED WITHOUT INCIDENT. PT AND FAMILY VERBALIZED UNDERSTANDING OF D/C INSTRUCTIONS, HAS DIALYSIS INTAKE APPT TOMORROW MORNING. NEW RX FAXED TO [facility]. OFF UNIT, AMBULATORY, AT 1225. NO PERSONAL BELONGINGS LEFT BEHIND IN ROOM.
[2022-03-03 13:08] LABS: HBSAG SCREEN Negative (Negative); HCV AB >11.0 (0.0-0.9); HEP A AB, IGM Negative (Negative); HEP B CORE AB, IGM Negative (Negative); HEPATITIS C QUANTITATION HCV Not Detected IU/mL (.)
== END 2022-03-03 12:18 | disposition home or self-care (01) | DRG 673 ==
LOC: MHTC 10:17 → MEDS 12:56 → MHTC 12:57 → MEDS 12:57
PROVIDERS: Internal Medicine Nephrology; ADMIT Radiology Diagnostic Radiology
PROC: 0JH63XZ Insertion of Tunneled Vascular Access Device into Chest Subcutaneous Tissue and Fascia, Percutaneous Approach (ICD-10-PCS; principal; 2022-02-26)
PROC: 02HV33Z Insertion of Infusion Device into Superior Vena Cava, Percutaneous Approach (ICD-10-PCS; 2022-02-26)
PROC: B548ZZA Ultrasonography of Superior Vena Cava, Guidance (ICD-10-PCS; 2022-02-26)
PROC: 5A1D70Z Performance of Urinary Filtration, Intermittent, Less than 6 Hours Per Day (ICD-10-PCS; 2022-02-26)
DX: N17.9 Acute kidney failure, unspecified (principal); G93.41 Metabolic encephalopathy; E87.1 Hypo-osmolality and hyponatremia; E87.2 Acidosis; I12.0 Hypertensive chronic kidney disease with stage 5 chronic kidney disease or end stage renal disease; D63.1 Anemia in chronic kidney disease; K74.60 Unspecified cirrhosis of liver; E78.5 Hyperlipidemia, unspecified; N18.6 End stage renal disease; R93.0 Abnormal findings on diagnostic imaging of skull and head, not elsewhere classified; E83.52 Hypercalcemia; E83.51 Hypocalcemia; E87.6 Hypokalemia; N25.81 Secondary hyperparathyroidism of renal origin; Z86.73 Personal history of transient ischemic attack (TIA), and cerebral infarction without residual deficits; Z72.89 Other problems related to lifestyle; Z98.890 Other specified postprocedural states; Z98.891 History of uterine scar from previous surgery; Z88.8 Allergy status to other drugs, medicaments and biological substances; Z79.899 Other long term (current) drug therapy
CPT/HCPCS: 36415; 36558; 70487; 76937; 77001; 80069; 80074; 82306; 83735; 83970; 84100; 85014; 85018; 86317; 93005; 93010; 94760; 96372; 96375; 99152; 99153; A9270; C1750; C1769; C1894; G0378; J0360; J0610; J0881; J1644; J2250; J3010; J7030; J7040; Q9967

== ENCOUNTER → 2022-08-13 | Outpatient (CLI) | payer MEDICARE, OTHER ==
[~2022-08-13] MED LIST changes: +ALBU90OI INH; +Atarax10 MG; +CATAPRES0.1 MG PO; +CEPH500 PO; +Cyclobenzaprine5 MG; +Cyclobenzaprine5 MG PO; +LEVE500 PO; +LOSA50 PO; +NICO2 PO; +TRAZ50 PO; +VISBIOME 112.51 EACH PO; +Vistaril50 MG PO
== END ==
LOC: LAB 16:59 → LAB SHORT 16:59
DX: N39.0 Urinary tract infection, site not specified (principal)
CPT/HCPCS: 87086

== ENCOUNTER 2022-09-17 15:51 | Inpatient (IN) | payer MEDICARE, OTHER ==
[~2022-09-17] VITALS: Ht 167.6 cm; Wt 61.4 kg
[2022-09-17 16:37] LABS: BASOPHILS ABSOLUTE AUTO 0.09 K/mm3 (0.00-0.23); BASOPHILS PERCENT AUTO 1 % (0-2); EOSINOPHILS ABSOLUTE AUTO 0.41 K/mm3 (0.00-0.68); EOSINOPHILS PERCENT AUTO 5 % (0-6); IMMATURE GRAN ABSOLUTE AUTO 0.25 K/mm3 (0.00-0.10); IMMATURE GRAN PERCENT AUTO 3 % (0-1); LYMPHOCYTES ABSOLUTE AUTO 1.17 K/mm3 (0.84-5.20); LYMPHOCYTES PERCENT AUTO 15 % (21-46); MONOCYTES ABSOLUTE AUTO 0.67 K/mm3 (0.16-1.47); MONOCYTES PERCENT AUTO 9 % (4-13); Mean Corpuscular HGB 32.2 pg (26.0-34.0); Mean Corpuscular HGB Conc 32.7 g/dL (31.5-36.5); Mean Corpuscular Volume 98 fL (80-100); Mean Platelet Volume 9.2 fL (9.1-12.4); NEUTROPHILS PERCENT AUTO 66 % (41-73); NRBC ABSOLUTE 0.14 K/mm3 (0.00-0.02); NRBC Auto 1.8 /100 WBC (0.0-0.2); Platelet Count 405 K/mm3 (150-400); RDW Coefficient Variation 21.5 % (11.7-14.2); RDW Standard Deviation 74.9 fL (35.1-46.3); Red Blood Cell Count 1.71 M/mm3 (3.80-5.20); White Blood Cell Count 7.59 K/mm3 (4.00-11.30)
[2022-09-17 16:43] LABS: Hematocrit 16.8 % (33.0-51.0); Hemoglobin 5.5 g/dL (11.5-16.0)
[2022-09-17 17:03] LABS: Magnesium, Blood 1.9 mg/dL (1.6-2.4)
[2022-09-17 17:06] LABS: Albumin, Blood 3.2 g/dL (3.4-5.0); Albumin/Globulin Ratio 0.9 (0.8-1.8); Bilirubin, Total 0.3 mg/dL (0.1-1.0); Bun/Creatinine Ratio 7.4 (12.0-20.0); Calcium, Blood 8.3 mg/dL (8.5-10.1); Creatinine, Blood 2.71 mg/dL (0.40-1.00); Globulin, Blood 3.7 g/dL (2.2-4.0); Potassium, Blood 3.7 mmol/L (3.5-5.5); Total Protein, Blood 6.9 g/dL (6.4-8.2)
[2022-09-17 18:30] LABS: International Normalized Ratio 1.01; Prothrombin Time Results 10.6 Sec (9.7-11.5)
--- NOTE | 2022-09-17 22:39 | NUR ---
ADMISSION: PT ARRIVED TO PCU3. SLID OVER FROM [facility] VIA THREE PERSON ASSIST. ALERT AND ORIENTED X4, ABLE TO FOLLOW COMMANDS AND MAKE NEEDS KNOWN. BP STABLE, HR SR 60'S, AFEBRILE, SATS >96% ON ROOM AIR. WHEEZES NOTED ON L SIDE, CLEAR IN RIGHT. RESPIRATIONS EVEN AND UNLABORED AT REST. AFEBRILE. PT ARRIVED TO UNIT WITH PRBC INFUSING, UNIT COMPLETED. ADDITIONAL UNIT ORDERED, NOW INFUSING. TOLERATING WELL. PT COMPLAINING OF HEADACHE, MEDICATED WITH TYLENOL PER EMAR. SBA TO AND FROM BATHROOM. SKIN OVERALL C/D/I. PT NOW RESTING. BED IN LOW, CALL LIGHT IN REACH, WILL CONTINUE TO MONITOR.
--- NOTE | 2022-09-18 05:10 | NUR ---
SHIFT SUMMARY: NO ACUTE CHANGES SINCE ADMISSION. PT REMAINS ALERT AND ORIENTED X4, ABLE TO FOLLOW COMMANDS AND MAKE NEEDS KNOWN, AFEBRILE, SATS >96% ON ROOM AIR, HR STABLE, BP HYPERTENSIVE AT END OF SHIFT, CALL PLACED TO MD, SEE EMAR. PT RECEIVED 2 UNITS OF PRBC, HGB NOW STABLE. PLAN FOR SCOPE THIS AFTERNOON, WATER ONLY UNTIL 12, NPO AFTERWARDS. PT SBA TO AND FROM BATHROOM, CALLS APPROPRIATELY. BED IN LOW, CALL LIGHT IN REACH, WILL REPORT TO ONCOMING RN.
[2022-09-18 07:19] LABS: Hemoglobin 8.6 g/dL (11.5-16.0)
--- NOTE | 2022-09-18 17:02 | NUR ---
Patient confirms NPO status and agrees with scheduled surgery. Pre-Op teaching done. Pt verbalizes understanding. PT ON RM AIR. PT IN NO DISTRESS.
--- NOTE | 2022-09-18 17:26 | NUR ---
09/18/22 172 Dominik Bautista SEE ANESTHESIA RECORD
--- NOTE | 2022-09-18 18:25 | NUR ---
SHIFT SUMMARY; ASSUMED CARE AT 0700. A/A/OX3 DURING SHIFT. NO ACTIVE GI BLEEDING DURING SHIFT. HYPERTENSIVE AT TIMES, TREATED PER EMAR. ASSISTED TO RECLINER CHAIR AND UP IN CHAIR FOR SEVERAL HOURS IN AFTERNOON. EGD DONE THIS EVENING. DIET CHANGED TO RENAL PER DR. DALTON. VSS, WILL CONTINUE TO MONITOR AND TREAT UNTIL CHANGE OF SHIFT.
[2022-09-19 03:35] LABS: Hematocrit 26.3 % (33.0-51.0); Hemoglobin 8.9 g/dL (11.5-16.0)
[2022-09-19 04:04] LABS: Albumin, Blood 3.1 g/dL (3.4-5.0); Anion Gap 7 mmol/L (6-16); Blood Urea Nitrogen 42 mg/dL (8-24); Bun/Creatinine Ratio 9.4 (12.0-20.0); CO2, Blood 24 mmol/L (21-32); Calcium, Blood 8.9 mg/dL (8.5-10.1); Chloride, Blood 107 mmol/L (98-108); Creatinine, Blood 4.46 mg/dL (0.40-1.00); Glomerular Filtration Rate 10 (60-); Glucose, Blood 82 mg/dL (70-99); Magnesium, Blood 2.1 mg/dL (1.6-2.4); Phosphorus, Blood 5.8 mg/dL (2.5-4.9); Potassium, Blood 4.5 mmol/L (3.5-5.5); Sodium, Blood 138 mmol/L (136-145)
--- NOTE | 2022-09-19 04:23 | NUR ---
SHIFT SUMMARY: PT WITH NO ACUTE CHANGES OVERNIGHT. REMAINS ALERT AND ORIENTED X4, ABLE TO FOLLOW COMMANDS AND MAKE NEEDS KNOWN. HR STABLE, AFEBRILE, SATS >95%. NO COMPLAINTS OF SHORTNESS OF BREATH DURING THE NIGHT. 2L NC PROVIDED INCASE FOR COMFORT. BP STABLE. PT COMPLAINED OF 10/10 BACKPAIN, CALL PLACED TO MD NEW ORDERS RECEIVED, SEE EMAR. PT SBA TO AND FROM BATHROOM. DAUGHTER AT BEDSIDE START OF SHIFT, UPDATED ON PT CARE WITH PERMISSION. BED IN LOW, CALL LIGHT IN REACH, WILL REPORT TO ONCOMING RN.
== END 2022-09-19 14:55 | disposition home or self-care (01) | DRG 811 ==
LOC: ER 15:51 → PCU 20:50
PROVIDERS: Internal Medicine Nephrology; Physician Assistant; Student in an Organized Health Care Education/Training Program; ADMIT Internal Medicine
PROC: 30233N1 Transfusion of Nonautologous Red Blood Cells into Peripheral Vein, Percutaneous Approach (ICD-10-PCS; principal; 2022-09-17)
PROC: 5A1D70Z Performance of Urinary Filtration, Intermittent, Less than 6 Hours Per Day (ICD-10-PCS; 2022-09-17)
PROC: 0DJ08ZZ Inspection of Upper Intestinal Tract, Via Natural or Artificial Opening Endoscopic (ICD-10-PCS; 2022-09-18)
DX: D62 Acute posthemorrhagic anemia (principal); N18.6 End stage renal disease; I12.0 Hypertensive chronic kidney disease with stage 5 chronic kidney disease or end stage renal disease; K92.2 Gastrointestinal hemorrhage, unspecified; N25.81 Secondary hyperparathyroidism of renal origin; J44.9 Chronic obstructive pulmonary disease, unspecified; D63.1 Anemia in chronic kidney disease; R19.5 Other fecal abnormalities; K22.2 Esophageal obstruction; D17.5 Benign lipomatous neoplasm of intra-abdominal organs; E78.5 Hyperlipidemia, unspecified; M51.9 Unspecified thoracic, thoracolumbar and lumbosacral intervertebral disc disorder; F17.210 Nicotine dependence, cigarettes, uncomplicated; F12.10 Cannabis abuse, uncomplicated; K44.9 Diaphragmatic hernia without obstruction or gangrene; F10.20 Alcohol dependence, uncomplicated; I16.0 Hypertensive urgency; I73.9 Peripheral vascular disease, unspecified; M85.80 Other specified disorders of bone density and structure, unspecified site; G40.909 Epilepsy, unspecified, not intractable, without status epilepticus; E87.70 Fluid overload, unspecified; E88.09 Other disorders of plasma-protein metabolism, not elsewhere classified; M19.90 Unspecified osteoarthritis, unspecified site; M54.16 Radiculopathy, lumbar region; M54.50 Low back pain, unspecified; G89.29 Other chronic pain; Z86.73 Personal history of transient ischemic attack (TIA), and cerebral infarction without residual deficits; Z98.890 Other specified postprocedural states; Z99.2 Dependence on renal dialysis; Z88.8 Allergy status to other drugs, medicaments and biological substances; Z91.15 Patient's noncompliance with renal dialysis; Z79.51 Long term (current) use of inhaled steroids; Z86.19 Personal history of other infectious and parasitic diseases; Z79.899 Other long term (current) drug therapy; Z95.828 Presence of other vascular implants and grafts; Z90.49 Acquired absence of other specified parts of digestive tract; Z90.6 Acquired absence of other parts of urinary tract
CPT/HCPCS: 36415; 36430; 71045; 80053; 80069; 82272; 83735; 83880; 84484; 85014; 85018; 85025; 85610; 85730; 86850; 86900; 86901; 86923; 93005; 93010; 94640; 94664; 94760; 96374; 99285-25; A9270; C9113; J0360; J0881; J1610; J2405; J2704; J7030; P9016

== ENCOUNTER 2022-10-05 13:41 | Emergency (ER) | payer MEDICARE, OTHER ==
[~2022-10-05] VITALS: Ht 167.6 cm; Wt 64.0 kg
[2022-10-05 15:05] LABS: BASOPHILS ABSOLUTE AUTO 0.18 K/mm3 (0.00-0.23); BASOPHILS PERCENT AUTO 2 % (0-2); EOSINOPHILS ABSOLUTE AUTO 0.46 K/mm3 (0.00-0.68); EOSINOPHILS PERCENT AUTO 6 % (0-6); Hematocrit 25.3 % (33.0-51.0); IMMATURE GRAN ABSOLUTE AUTO 0.04 K/mm3 (0.00-0.10); IMMATURE GRAN PERCENT AUTO 1 % (0-1); LYMPHOCYTES ABSOLUTE AUTO 1.56 K/mm3 (0.84-5.20); LYMPHOCYTES PERCENT AUTO 21 % (21-46); MONOCYTES ABSOLUTE AUTO 0.86 K/mm3 (0.16-1.47); MONOCYTES PERCENT AUTO 12 % (4-13); Mean Corpuscular HGB 31.5 pg (26.0-34.0); Mean Corpuscular HGB Conc 31.6 g/dL (31.5-36.5); Mean Corpuscular Volume 100 fL (80-100); Mean Platelet Volume 8.6 fL (9.1-12.4); NEUTROPHILS PERCENT AUTO 58 % (41-73); Platelet Count 397 K/mm3 (150-400); RDW Standard Deviation 68.3 fL (35.1-46.3); Red Blood Cell Count 2.54 M/mm3 (3.80-5.20)
[2022-10-05 15:17] LABS: Bun/Creatinine Ratio 8.6 (12.0-20.0); Calcium, Blood 8.4 mg/dL (8.5-10.1); Creatinine, Blood 5.83 mg/dL (0.40-1.00); Potassium, Blood 4.9 mmol/L (3.5-5.5)
[2022-10-05 15:22] LABS: International Normalized Ratio 1.03; Prothrombin Time Results 10.8 Sec (9.7-11.5)
--- NOTE | 2022-10-05 19:21 | NUR ---
HEMODIALYSIS: CALLED IN TO ER ROOM 9 FOR PATIENT DIALYSIS CATHETER DYSFUNCTION. CONSULTED DR. MELTON AND RECEIVED ORDER FOR ATP, BOTH LUMEN. PATIENT IN BED, ALERT AND ORIENTED X4. CVC SLUGGISH TO DRAW AND FLUSH. DRESSING CHANGED NO SIGNS AMD SYMPTOMS OF INFECTION. ACTIVASE STARTED AT 1730 AND DWELL FOR 100 MINUTES. ABLE TO ASPIRATE MEDICATION AND BLOOD ON BOTH CBC LUMEN FREELY. FLUSHED WITH NS, PACKED WITH HEPARIN AND CAPPED BOTH LUMENS. CVC LUMENS FUNCTIONING PROPERLY. PATIENT HAS NO CONCERNS RAISED WITH TREATMENT.
== END 2022-10-05 19:40 | disposition home or self-care (01) ==
LOC: ER 13:41
PROVIDERS: Emergency Medicine
DX: T82.41XA Breakdown (mechanical) of vascular dialysis catheter, initial encounter (principal); Y71.8 Miscellaneous cardiovascular devices associated with adverse incidents, not elsewhere classified; E78.5 Hyperlipidemia, unspecified; I12.0 Hypertensive chronic kidney disease with stage 5 chronic kidney disease or end stage renal disease; N18.6 End stage renal disease; F17.210 Nicotine dependence, cigarettes, uncomplicated; Z88.6 Allergy status to analgesic agent; Z88.8 Allergy status to other drugs, medicaments and biological substances; Z79.899 Other long term (current) drug therapy
CPT/HCPCS: 36415; 80048; 85025; 85610; 85730; J2997

== ENCOUNTER 2022-11-13 07:06 | Day surgery (SDC) | payer MEDICARE, OTHER ==
[~2022-11-13] VITALS: Ht 167.6 cm; Wt 65.0 kg
[~2022-11-13 07:06] MED LIST changes: +HYDHCL25 PO
--- NOTE | 2022-11-13 09:57 | NUR ---
PATIENT ARRIVED TO RECOVERY ROOM AWAKE AND CONVERSING APPROPRIATELY. L ARM CHG DRESSING C/D/I, SOFT/NONTENDER. VSSS ON ROOM AIR.
[2022-11-13] MEDS ORDERED: CLOP75 PO (10:15)
--- NOTE | 2022-11-13 10:41 | NUR ---
PATIENT DISCHARGE PAPERWORK REVIEWED WITH PATIENT. NEW MEDICATION, PLAVIX REVIEWED, MEDICATION CALLED TO PATIENTS PREFERRED PHARMACY. ALL QUESTIONS WERE ANSWERED. PATIENT SCHEDULED FOR DIALYSIS ON 11/14. VSS ON ROOM AIR. PATIENT SITTING COMFORTABLY IN BED TOLERATING PO INTAKE WELL.
--- NOTE | 2022-11-13 12:00 | NUR ---
PATIENT DISCHARGED AT THIS TIME. L LARRY FISTULA SITE C/D/I SOFT/NONTENDER, NO EVIDENCE OF BLEEDING. THRILL FELT. VSS ON ROOM AIR. PT TOLERATING PO INTAKE WELL. PIV REMOVED WITHOUT DIFFICULTY, CATHETER INTACT.
== END 2022-11-13 13:05 | disposition home or self-care (01) ==
LOC: MHTC 07:06
DX: I12.0 Hypertensive chronic kidney disease with stage 5 chronic kidney disease or end stage renal disease (principal); N18.6 End stage renal disease; F17.210 Nicotine dependence, cigarettes, uncomplicated; Z99.2 Dependence on renal dialysis; Z86.73 Personal history of transient ischemic attack (TIA), and cerebral infarction without residual deficits; Z88.8 Allergy status to other drugs, medicaments and biological substances
CPT/HCPCS: 76937; 99152; 99153; A9270; C1725; C1769; C1889; C1894; J1644; J2250; J3010; J7030

== ENCOUNTER 2022-12-05 16:42 | Inpatient (IN) | payer MEDICARE, OTHER ==
[~2022-12-05] VITALS: Ht 167.6 cm; Wt 60.8 kg
[2022-12-05 17:08] LABS: BASOPHILS ABSOLUTE AUTO 0.16 K/mm3 (0.00-0.23); BASOPHILS PERCENT AUTO 2 % (0-2); EOSINOPHILS ABSOLUTE AUTO 0.26 K/mm3 (0.00-0.68); EOSINOPHILS PERCENT AUTO 3 % (0-6); IMMATURE GRAN ABSOLUTE AUTO 0.04 K/mm3 (0.00-0.10); IMMATURE GRAN PERCENT AUTO 1 % (0-1); LYMPHOCYTES ABSOLUTE AUTO 1.45 K/mm3 (0.84-5.20); LYMPHOCYTES PERCENT AUTO 18 % (21-46); MONOCYTES PERCENT AUTO 10 % (4-13); Mean Corpuscular HGB 32.7 pg (26.0-34.0); Mean Corpuscular HGB Conc 33.1 g/dL (31.5-36.5); Mean Corpuscular Volume 99 fL (80-100); Mean Platelet Volume 9.4 fL (9.1-12.4); NEUTROPHILS ABSOLUTE AUTO 5.17 K/mm3 (1.96-9.15); NEUTROPHILS PERCENT AUTO 66 % (41-73); NRBC ABSOLUTE 0.06 K/mm3 (0.00-0.02); NRBC Auto 0.8 /100 WBC (0.0-0.2); Platelet Count 376 K/mm3 (150-400); RDW Coefficient Variation 19.9 % (11.7-14.2); RDW Standard Deviation 69.4 fL (35.1-46.3); Red Blood Cell Count 1.59 M/mm3 (3.80-5.20); White Blood Cell Count 7.88 K/mm3 (4.00-11.30)
[2022-12-05 17:11] LABS: Hemoglobin 5.2 g/dL (11.5-16.0)
[2022-12-05 17:12] LABS: Hematocrit 15.7 % (33.0-51.0)
[2022-12-05 17:24] LABS: Albumin, Blood 3.5 g/dL (3.4-5.0); Bilirubin, Total 0.5 mg/dL (0.1-1.0); Bun/Creatinine Ratio 6.9 (12.0-20.0); Calcium, Blood 8.3 mg/dL (8.5-10.1); Creatinine, Blood 2.77 mg/dL (0.40-1.00); Globulin, Blood 3.6 g/dL (2.2-4.0); Potassium, Blood 3.6 mmol/L (3.5-5.5); Total Protein, Blood 7.1 g/dL (6.4-8.2)
[2022-12-05] MEDS ORDERED: Norco 7.5-3251 EACH PO (21:11)
[2022-12-05 22:19] VITALS: BP 127/83
--- NOTE | 2022-12-05 22:27 | NUR ---
TRANSFER NOTE/ASSUMPTION OF CARE THIS RN RECEIVED REPORT VIA PHONE FROM JOANA HANSON IN THE ED. PATIENT TRANSFERRED TO PCU AT 2110. PATIENT ABLE TO TRANSFER TO BED FROM [facility] WITH MINIMAL ASSISTANCE. ALERT AND ORIENTED FULLY. ABLE TO MAKE NEEDS KNOWN. PERMCATH ON RT CHEST WALL, DRESSING C/D/I. LEFT ARM FISTULA PATENT; THRILL PALPATED. PPP. C/O DIZZINESS. 1 UNIT TRANSFUSED PRIOR TO TRANSFER. 2ND UNIT TRANSFUSING CURRENTLY WHILE THIS RN WRITES THIS NOTE. VITALS STABLE. COARSE LUNG SOUNDS IN BASES. CLEAR SPUTUM NOTED; PT STATES WET PRODUCTIVE COUGH IS NORMAL FOR HER. CALL PLACED TO MD LAKE REGARDING CODE STATUS; THIS RN NOTED THAT PATIENT STATED SHE DID NOT WANT INTUBATION WHILE THIS RN ASKED ADMISSION QUESTIONS; PT EDUCATED ON WHAT THAT MEANTS AND THE RAMIFICATIONS OF NOT BEING INTUBATED IF HER HEART/BREATHING STOPPED; PATIENT VERBALIZED UNDERSTANDING; MD NOTIFIED AND GIVEN THIS RN VERBAL ORDER TO CHANGE TO A DNI. PATIENT DENIES N/V AND ABDOMINAL PAIN. BED IN LOWEST POSITION AND CALL LIGHT WITHIN REACH. PATIENT ON FULL LIQUID DIET PER ORDER AND WILL BE NPO AFTER MIDNIGHT FOR SCOPE.
[2022-12-05 22:40] VITALS: BP 129/89
[2022-12-05 23:40] VITALS: BP 123/73
[2022-12-06] VITALS (18 sets, daily range): BP systolic 119–184; BP diastolic 71–107
[2022-12-06 02:00] LABS: Source, Urine Clean Catch
[2022-12-06 02:13] LABS: Hematocrit 21.7 % (33.0-51.0); Hemoglobin 7.2 g/dL (11.5-16.0)
[2022-12-06 02:21] LABS: Bilirubin, Urine Neg (Neg); Blood, Urine Neg (Neg); Glucose Qualitative, Urine Neg (Neg); Ketones, Urine Neg (Neg); Leukocyte Esterase, Urine Neg (Neg); Nitrite, Urine Neg (Neg); Protein, Urine 2+ (Neg); Urobilinogen, Urine NORM (Normal)
[2022-12-06 02:27] LABS: Appearance, Urine Clear (Clear); Color, Urine Pale Yellow (P-Yellow)
[2022-12-06 02:28] LABS: Bacteria Not Seen /hpf; Red Blood Cells, Urine 0-2 /hpf (0-2); Squamous Epithelial Cells Few /hpf (Few); White Blood Cells, Urine 0-2 /hpf (0-5); Yeast/Fungi Urine Rare /hpf
[2022-12-06 02:29] LABS: International Normalized Ratio 1.04; Prothrombin Time Results 10.9 Sec (9.7-11.5)
[2022-12-06 02:37] LABS: Albumin, Blood 3.3 g/dL (3.4-5.0); Anion Gap 5 mmol/L (6-16); Blood Urea Nitrogen 25 mg/dL (8-24); Bun/Creatinine Ratio 7.2 (12.0-20.0); CO2, Blood 28 mmol/L (21-32); Calcium, Blood 8.4 mg/dL (8.5-10.1); Chloride, Blood 101 mmol/L (98-108); Creatinine, Blood 3.47 mg/dL (0.40-1.00); Glomerular Filtration Rate 14 (60-); Glucose, Blood 89 mg/dL (70-99); Magnesium, Blood 1.6 mg/dL (1.6-2.4); Potassium, Blood 4.1 mmol/L (3.5-5.5); Sodium, Blood 134 mmol/L (136-145)
--- NOTE | 2022-12-06 04:10 | NUR ---
SHIFT SUMMARY PATIENT COMPLETED SECOND UNIT OF BLOOD. SEE LABS. PER MD MELTON ORDER, PATIENT BLADDER SCANNED, SHOWING 664MLS RETAINED IN BLADDER, PATIENT UNABLE TO VOID FURTHER. CALL PLACED TO MD MELTON PER ORDER FOR SCAN >200MLS; MD MELTON WITH ORDER TO PLACE CRUZ CATHETER. CRUZ CATHETER PLACED USING STERILE TECHNIQUE. PATIENT TOLERATED WELL. DRAINING TO GRAVITY. PATIENT ABLE TO REPOSTIION SELF IN BED INDEPENDENTLY. A&O X4. ABLE TO MAKE NEEDS KNOWN. NO DARK STOOLS OF HEMATEMESIS. DENIES ABD PAIN. BED IN LOWEST POSITION AND CALL LIGHT WITHIN REACH. THIS RN WILL CONTINUE TO MONITOR UNTIL SHIFT CHANGE AT 0700.
[2022-12-06 08:54] LABS: Hematocrit 21.8 % (33.0-51.0); Hemoglobin 7.4 g/dL (11.5-16.0)
[2022-12-06 14:23] LABS: Hematocrit 24.4 % (33.0-51.0); Hemoglobin 8.4 g/dL (11.5-16.0)
--- NOTE | 2022-12-06 17:16 | NUR ---
END OF SHIFT SUMMARY PT IS A&O X4. SPO2 >92% ON RA. NORMAL SINUS RYTHYM 70'S-90'S. PT HAD DIALYSIS TREATMENT TODAY. PT IS NPO, AWAITING SCOPE PROCEDURE. PT DENIES BM OR SIGNS OF BLEEDING THIS SHIFT. CRUZ CATH PATENT & DRAINING. PT HAS NO COMPLAINTS AT THIS TIME. PT LYING IN BED IN LOWEST POSITION WITH CALL LIGHT IN REACH.
--- NOTE | 2022-12-06 19:02 | NUR ---
PATIENT TRANSPORTED TO [facility]. AGREES WITH PLANNED PROCEDURE.
--- NOTE | 2022-12-06 19:25 | NUR ---
12/06/221924 Jose Whittaker History, Chart, Medications and Allergies reviewed before start of procedure. MONITOR INTACT WITH CONTINUOUS PULSE OXIMETRY, CONTINUOUS END TITAL CO2, AND INTERMITTENT BLOOD PRESSURE. 3-LEAD EKG REVIEWED WITH PHYSICIAN PRIOR TO START OF PROCEDURE. O2 VIA POM INTACT THROUGHOUT SEDATION/PROCEDURE. Bite Block Placed. 4% LIDOCAINE THROUGH NEBULIZER PER DR BURGER'S ORDERS IN PRE OP.
--- NOTE | 2022-12-06 22:04 | NUR ---
ASSUMPTION OF CARE PATIENT TAKEN FOR EGD PRIOR TO SHIFT CHANGE. PT RETURNED FROM PROCEDURE AT APPROXIMATELY 1945. TRANSFERRED TO BED FROM [facility]. BEDSIDE REPORT TAKEN FROM RN. MD DALTON TO BEDSIDE TO DISCUSS PLAN. VERBAL ORDERS FROM SHA FOR PATIENT TO HAVE WATER/ICE CHIPS ONLY AFTER MIDNIGHT 12/07, AND NPO AT 0700 12/07 FOR POSSIBLE SCOPE TOMORROW 12/07. VITALS STABLE. SR/ST WITH HR 90-100'S. ON 2L VIA NC WHILE SLEEPING D/T DESATTING. CRUZ CATHETER PATENT AND DRAINING TO GRAVITY. FISTULA PATENT; THRILL FELT. REPOSITIONS SELF IN BED. BED IN LOWEST POSITION AND CALL LIGHT WITHIN REACH.
[2022-12-06 23:35] LABS: Hematocrit 24.6 % (33.0-51.0); Hemoglobin 8.2 g/dL (11.5-16.0)
[2022-12-07] VITALS (7 sets, daily range): BP systolic 100–178; BP diastolic 88–988
[2022-12-07 04:48] LABS: Hematocrit 25.9 % (33.0-51.0); Hemoglobin 8.5 g/dL (11.5-16.0)
--- NOTE | 2022-12-07 04:48 | NUR ---
SHIFT SUMMARY NO ACUTE CHANGES OVERNIGHT. SR/ST ON MONITOR WITH HR 90-100'S. BP STABLE. AFEBRILE. SPO2 >92% ON RA-2L; PATIENT REQUIRES 2L WHILE SLEEPING D/T DESATTING. NO S/S OF DARK STOOLS, HEMATEMESIS, NAUSEA, OR ABDOMINAL PAIN. CRUZ CATHETER PATENT AND DRAINING TO GRAVITY. PATIENT REPOSITIONS SELF IN BED INDEPENDENTLY. BED IN LOWEST POSITION AND CALL LIGHT WITHIN REACH. PATIENT DRINKING WATER/ICE CHIPS ONLY AT THIS TIME AND WILL BE NPO AT 0700. THIS RN WILL CONTINUE TO MONITOR UNTIL SHIFT CHANGE AT 0700.
[2022-12-07 05:13] LABS: Albumin, Blood 3.7 g/dL (3.4-5.0); Anion Gap 8 mmol/L (6-16); Blood Urea Nitrogen 27 mg/dL (8-24); Bun/Creatinine Ratio 6.9 (12.0-20.0); CO2, Blood 29 mmol/L (21-32); Calcium, Blood 9.1 mg/dL (8.5-10.1); Chloride, Blood 99 mmol/L (98-108); Creatinine, Blood 3.91 mg/dL (0.40-1.00); Glomerular Filtration Rate 12 (60-); Glucose, Blood 98 mg/dL (70-99); Magnesium, Blood 2.1 mg/dL (1.6-2.4); Phosphorus, Blood 6.3 mg/dL (2.5-4.9); Potassium, Blood 3.8 mmol/L (3.5-5.5); Sodium, Blood 136 mmol/L (136-145)
--- NOTE | 2022-12-07 13:47 | NUR ---
TRANSFER TO MEDICAL PT A&O X4. BP ELEVATED. W/ ORDER TO RESUME PT HOME BP MEDICATIONS. VSS. SPO2 > 92% ON RA. MONITOR SHOWING NSR PRIOR TO TELEMETRY DC THIS SHIFT. MD DALTON W/ BLAINE FOR WATER/ICE UNTIL 1300, PT THEN NPO SINCE 1300 FOR EGD. PT W/ CRUZ CATH, PATENT & DRAINING CLEAR YELLOW URINE. PT REPORTS LAST BM "DAY BEFORE YESTERDAY." PT DENIES SIGNS OF BLEEDING. REPORT GIVEN TO ACCEPTING MEDICAL FLOOR RN. PT TAKEN TO RM 360 BY PCT IN WHEELCHAIR W/ BELONGINGS @ APRPOX 2085.
--- NOTE | 2022-12-07 14:57 | NUR ---
PT ARRIVED TO ROOM 360 BY W/C. ABLE TO TRANSFER SELF IN TO BED WITHOUT ASSISTANCE. CURRENTLY NPO FOR ENDOSCOPY. PT AWARE IT WILL BE APPROX AN HOUR. ORIENTED TO ROOM.
--- NOTE | 2022-12-07 16:22 | NUR ---
12/07/22 1623 Kedar Whittaker History, Chart, Medications and Allergies reviewed before start of procedure.MONITOR INTACT WITH CONTINUOUS PULSE OXIMETRY, CONTINUOUS END TITAL CO2, AND INTERMITTENT BLOOD PRESSURE.3-LEAD EKG REVIEWED WITH PHYSICIAN PRIOR TO START OF PROCEDURE.O2 VIA POM INTACT THROUGHOUT SEDATION/PROCEDURE.See Anesthesia record.
--- NOTE | 2022-12-07 18:28 | NUR ---
SHIFT SUMMARY PT RETURNED FROM EGD AND SETTLED IN TO BED. BP ELEVATED, WHICH DAY SURGERY RN REPORTED PT HAS HAD DURING RECOVERY. DAUGHTER REPORTS SHE GENERALLY HAS ELEVATED BP WITH PAIN. SPOKE WITH MD ABOUT BACK AND L HIP PAIN DUE TO BEING TOO EARLY TO GIVE TYLENOL TO. LIDOCAINE PATCH APPLIED PER PT REQUEST. ASSISTED UP TO CHAIR TO EAT SUPPER.
[2022-12-07 22:40] LABS: Hematocrit 24.5 % (33.0-51.0); Hemoglobin 8.2 g/dL (11.5-16.0)
[2022-12-08] VITALS (7 sets, daily range): BP systolic 96–136; BP diastolic 71–95
[2022-12-08 05:01] LABS: Hemoglobin 7.8 g/dL (11.5-16.0)
[2022-12-08 05:48] LABS: Albumin, Blood 3.4 g/dL (3.4-5.0); Anion Gap 6 mmol/L (6-16); Blood Urea Nitrogen 42 mg/dL (8-24); Bun/Creatinine Ratio 7.8 (12.0-20.0); CO2, Blood 25 mmol/L (21-32); Calcium, Blood 8.8 mg/dL (8.5-10.1); Chloride, Blood 105 mmol/L (98-108); Creatinine, Blood 5.37 mg/dL (0.40-1.00); Glomerular Filtration Rate 8 (60-); Glucose, Blood 114 mg/dL (70-99); Potassium, Blood 3.7 mmol/L (3.5-5.5); Sodium, Blood 136 mmol/L (136-145)
--- NOTE | 2022-12-08 06:19 | NUR ---
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 ABLE TO MAKE NEEDS KNOWN; PLEASANT AND COOPERATIVE. PT EXPERIENCED A SIGNIFICANT DROP IN BLOOD PRESSURE WITH PM VITALS. MANUAL PRESSURE READING WAS 88/48. CALL TO ROAD MANAGER; NEW ORDER FOR 500 CC BOLUS OF NS AND STAT HGB. PT PB WAS MONITORED [id number] FOR TWO HOURS (NOT RECORDED). SPB CAME UP TO THE LOW 100'S. ALL OTHER VITALS WERE STABLE AND HGB RETURNED 8.2; AM LABS HGB 7.8.
--- NOTE | 2022-12-08 14:44 | NUR ---
DISCUSSED PLAN OF CARE WITH MD'S. PT BLOOD PRESSURE HAS BEEN LOW COMPAIRED TO BASELINE. NEW PARAMETERS ADDED TO CURRENT MEDS. NEW MED ADDED PLS SEE EMAR. CRUZ REMOVED. PT HAS NOT YET VOID. WILL BLADDER SCAN.
--- NOTE | 2022-12-08 18:29 | NUR ---
SHIFT SUMMARY PT IS ALERT AND ORIENTED X4. STILL NO URINE OUTPUT AFTER CRUZ REMOVAL. PLS SEE PREVIOUS NURSE NOTE. SBP REMAIN LOW COMPARED WITH PT BASELINE. PLS SEE EMAR FOR UPDATED MEDICATION PERAMETERS. INDEPENDENT IN THE ROOM.
[2022-12-09] VITALS (11 sets, daily range): BP systolic 88–126; BP diastolic 63–87
--- NOTE | 2022-12-09 05:21 | NUR ---
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 ABLE TO MAKE NEEDS KNOWN. PLEASANT AND COOPERATIVE. PT ANTHONY GUSMAN'Meli DURING DAY SHIFT. PT HAD ONE VOID OF 100MLS AND POST VOID RESIDUAL OF 12MLS ON A BLADDER SCAN. PT EAGER TO GO HOME. INDEPENDENT IN ROOM. CALLS APPROPRIATELY.
[2022-12-09] MEDS ORDERED: NICO21TP TOP (10:25)
[2022-12-09] MEDS ORDERED: MIDO5 PO (10:25)
[2022-12-09] MEDS ORDERED: PANT20 PO (10:26)
--- NOTE | 2022-12-09 14:21 | NUR ---
DISCHARGE SUMMARY: PT DISCHARGED HOME TODAY. PT BLADDER SCANNED THIS AM POST DIALYSIS AND WAS 384. PT ENCOURAGED TO VOID AND PT VOIDED 200 JUST AFTER BLADDER SCAN. PT EDUCATED AND ENCOURAGED TO URINATE Q3 HOURS WHILE AWAKE. PT ALSO EDUCATED ON DISCHARGE MEDICATIONS AND INSTRUCTIONS. PT VU. PT DECLINED WHEELCHAIR TRANSPORT TO PO AND AMBULATED WITH SON TO POV. PT STEADY ON HER FEET.
== END 2022-12-09 13:30 | disposition home or self-care (01) | DRG 377 ==
LOC: ER 16:42 → PCU 18:30 → MEDS 18:30 → PCU 21:05 → MEDS 12-07 13:47 → ENPENDDIS 12-09 10:23 → MEDS 12-09 13:30
PROVIDERS: Internal Medicine Gastroenterology; Internal Medicine Nephrology; Nurse Practitioner Acute Care; Physician Assistant; Student in an Organized Health Care Education/Training Program; ADMIT Internal Medicine
PROC: 30233N1 Transfusion of Nonautologous Red Blood Cells into Peripheral Vein, Percutaneous Approach (ICD-10-PCS; 2022-12-05)
PROC: 0DJ08ZZ Inspection of Upper Intestinal Tract, Via Natural or Artificial Opening Endoscopic (ICD-10-PCS; 2022-12-06)
PROC: 5A1D70Z Performance of Urinary Filtration, Intermittent, Less than 6 Hours Per Day (ICD-10-PCS; 2022-12-07)
PROC: 0W3P8ZZ Control Bleeding in Gastrointestinal Tract, Via Natural or Artificial Opening Endoscopic (ICD-10-PCS; principal; 2022-12-07 13:00)
DX: K31.811 Angiodysplasia of stomach and duodenum with bleeding (principal); N18.6 End stage renal disease; D62 Acute posthemorrhagic anemia; I12.0 Hypertensive chronic kidney disease with stage 5 chronic kidney disease or end stage renal disease; N25.81 Secondary hyperparathyroidism of renal origin; E87.1 Hypo-osmolality and hyponatremia; K44.9 Diaphragmatic hernia without obstruction or gangrene; K22.2 Esophageal obstruction; F17.210 Nicotine dependence, cigarettes, uncomplicated; D63.1 Anemia in chronic kidney disease; E78.5 Hyperlipidemia, unspecified; I95.9 Hypotension, unspecified; J44.9 Chronic obstructive pulmonary disease, unspecified; M19.90 Unspecified osteoarthritis, unspecified site; I73.9 Peripheral vascular disease, unspecified; F10.21 Alcohol dependence, in remission; M85.80 Other specified disorders of bone density and structure, unspecified site; B19.20 Unspecified viral hepatitis C without hepatic coma; I16.0 Hypertensive urgency; F12.10 Cannabis abuse, uncomplicated; M54.50 Low back pain, unspecified; M54.16 Radiculopathy, lumbar region; G89.29 Other chronic pain; E86.9 Volume depletion, unspecified; G40.909 Epilepsy, unspecified, not intractable, without status epilepticus; Z96.661 Presence of right artificial ankle joint; D17.5 Benign lipomatous neoplasm of intra-abdominal organs; E83.39 Other disorders of phosphorus metabolism; Z79.02 Long term (current) use of antithrombotics/antiplatelets; Z71.6 Tobacco abuse counseling; Z90.49 Acquired absence of other specified parts of digestive tract; Z98.890 Other specified postprocedural states; Z88.8 Allergy status to other drugs, medicaments and biological substances; Z99.2 Dependence on renal dialysis; Z79.51 Long term (current) use of inhaled steroids; Z79.891 Long term (current) use of opiate analgesic; Z79.899 Other long term (current) drug therapy; Z86.73 Personal history of transient ischemic attack (TIA), and cerebral infarction without residual deficits; Z87.19 Personal history of other diseases of the digestive system; Z90.6 Acquired absence of other parts of urinary tract; Z91.158 Patient's noncompliance with renal dialysis for other reason
CPT/HCPCS: 36415; 36430; 80053; 80069; 81001; 82272; 83690; 83735; 84132; 85014; 85018; 85025; 85610; 85730; 86850; 86900; 86901; 86923; 93005; 93010; 94640; 94664; 94760; 96374; 99285-25; A9270; C9113; J0881; J2001; J2250; J2704; J7030; J7040; J7050; P9016

== ENCOUNTER 2023-01-04 16:50 | Inpatient (IN) | payer MEDICARE, OTHER ==
[~2023-01-04] VITALS: Ht 167.6 cm; Wt 63.5 kg
[~2023-01-04 16:50] MED LIST changes: +MIDO5 PO; +NICO21TP TOP; +Norco 7.5-3251 EACH PO
[2023-01-04 18:14] LABS: BASOPHILS ABSOLUTE AUTO 0.17 K/mm3 (0.00-0.23); BASOPHILS PERCENT AUTO 2 % (0-2); EOSINOPHILS PERCENT AUTO 5 % (0-6); Hematocrit 21.6 % (33.0-51.0); IMMATURE GRAN ABSOLUTE AUTO 0.08 K/mm3 (0.00-0.10); IMMATURE GRAN PERCENT AUTO 1 % (0-1); LYMPHOCYTES ABSOLUTE AUTO 1.21 K/mm3 (0.84-5.20); LYMPHOCYTES PERCENT AUTO 14 % (21-46); MONOCYTES ABSOLUTE AUTO 0.95 K/mm3 (0.16-1.47); MONOCYTES PERCENT AUTO 11 % (4-13); Mean Corpuscular HGB Conc 32.4 g/dL (31.5-36.5); Mean Corpuscular Volume 99 fL (80-100); Mean Platelet Volume 8.9 fL (9.1-12.4); NEUTROPHILS ABSOLUTE AUTO 6.01 K/mm3 (1.96-9.15); NEUTROPHILS PERCENT AUTO 68 % (41-73); NRBC ABSOLUTE 0.09 K/mm3 (0.00-0.02); Platelet Count 480 K/mm3 (150-400); RDW Coefficient Variation 18.9 % (11.7-14.2); RDW Standard Deviation 66.5 fL (35.1-46.3); Red Blood Cell Count 2.19 M/mm3 (3.80-5.20); White Blood Cell Count 8.82 K/mm3 (4.00-11.30)
[2023-01-04 18:32] LABS: Albumin, Blood 3.5 g/dL (3.4-5.0); Bilirubin, Total 0.8 mg/dL (0.1-1.0); Bun/Creatinine Ratio 6.5 (12.0-20.0); Calcium, Blood 8.7 mg/dL (8.5-10.1); Creatinine, Blood 3.24 mg/dL (0.40-1.00); Globulin, Blood 3.5 g/dL (2.2-4.0); Potassium, Blood 3.2 mmol/L (3.5-5.5)
[2023-01-04] MEDS ORDERED: PLAVIX75 MG PO ×2 (19:38→19:39)
[2023-01-04] MEDS ORDERED: MIDO5 PO (19:39)
[2023-01-04] MEDS ORDERED: LOSA50 PO (19:40)
[2023-01-04] MEDS ORDERED: AURYXIA210 MG PO (19:40)
[2023-01-04] MEDS ORDERED: CATAPRES0.1 MG PO (19:41)
[2023-01-04 23:58] LABS: Magnesium, Blood 1.9 mg/dL (1.6-2.4); Potassium, Blood 3.4 mmol/L (3.5-5.5)
[2023-01-05] VITALS (14 sets, daily range): BP systolic 85–144; BP diastolic 63–109
[2023-01-05] MEDS ORDERED: GABA100 PO (01:01)
[2023-01-05] MEDS ORDERED: CYCL10 PO (01:01)
[2023-01-05] MEDS ORDERED: HYDHCL25 PO (01:03)
[2023-01-05 04:22] LABS: BASOPHILS ABSOLUTE AUTO 0.23 K/mm3 (0.00-0.23); BASOPHILS PERCENT AUTO 2 % (0-2); EOSINOPHILS ABSOLUTE AUTO 0.57 K/mm3 (0.00-0.68); EOSINOPHILS PERCENT AUTO 6 % (0-6); Hematocrit 24.8 % (33.0-51.0); Hemoglobin 8.2 g/dL (11.5-16.0); IMMATURE GRAN PERCENT AUTO 1 % (0-1); LYMPHOCYTES ABSOLUTE AUTO 1.43 K/mm3 (0.84-5.20); LYMPHOCYTES PERCENT AUTO 14 % (21-46); MONOCYTES ABSOLUTE AUTO 0.98 K/mm3 (0.16-1.47); MONOCYTES PERCENT AUTO 10 % (4-13); Mean Corpuscular HGB 31.8 pg (26.0-34.0); Mean Corpuscular HGB Conc 33.1 g/dL (31.5-36.5); Mean Corpuscular Volume 96 fL (80-100); Mean Platelet Volume 8.9 fL (9.1-12.4); NEUTROPHILS ABSOLUTE AUTO 7.04 K/mm3 (1.96-9.15); NEUTROPHILS PERCENT AUTO 68 % (41-73); Platelet Count 486 K/mm3 (150-400); RDW Coefficient Variation 20.6 % (11.7-14.2); RDW Standard Deviation 69.7 fL (35.1-46.3); Red Blood Cell Count 2.58 M/mm3 (3.80-5.20); White Blood Cell Count 10.35 K/mm3 (4.00-11.30)
--- NOTE | 2023-01-05 04:51 | NUR ---
SHIFT SUMMARY 67 YR F ADMITTED FOR ACUTE ON CHRONIC ANEMIA. FULL CODE. PT ARRIVED ON THIS UNIT AT JUST AFTER MIDNIGHT THIS SHIFT. SHE CHOSE TO SIT ON THE EDGE OF THE BED RATHER THAN LYING DOWN BECAUSE SHE SAID IT WAS EASIER TO BREATHE THAT WAY. SHE REQUESTED THAT O2 BE TURNED UP AND IT WAS BUMPED UP TO 4L. O2 SATS HAVE REMAINED STEADY IN THE MID TO UPPER 90'S. SHE WAS GIVEN DIURETICS AND IS ABLE TO AMBULATE TO THE BATHROOM INDEPENDANTLY. SHE C/O CHRONIC PAIN IN HER BACK AND STATED SHE TAKES NORCO AT HOME FOR THE PAIN. THIS WAS ADDED TO HER EMAR AND SHE WAS ABLE TO TAKE IT. SHE IS A&O X 4 AND IS COOPERATIVE WITH CARE. SHE IS A VERY PLEASANT WOMAN.
[2023-01-05 04:54] LABS: Albumin, Blood 3.4 g/dL (3.4-5.0); Albumin/Globulin Ratio 1.1 (0.8-1.8); Bilirubin, Total 1.6 mg/dL (0.1-1.0); Bun/Creatinine Ratio 7.4 (12.0-20.0); Calcium, Blood 8.6 mg/dL (8.5-10.1); Creatinine, Blood 3.79 mg/dL (0.40-1.00); Globulin, Blood 3.2 g/dL (2.2-4.0); Phosphorus, Blood 3.6 mg/dL (2.5-4.9); Potassium, Blood 3.4 mmol/L (3.5-5.5); Total Protein, Blood 6.6 g/dL (6.4-8.2)
--- NOTE | 2023-01-05 16:27 | NUR ---
SHIFT SUMMARY PATIENT ADMITTED FOR ACUTE ON CHRONIC ANEMIA. PATIENT IS A DIALYSIS PATIENT. PATIENT HAS DIALYSIS ACCESS VAS CATH ON R SIDE OF CHEST. PATIENT HAD DIALYSIS TODAY. PATIENT STATES THAT SHE HAS A LOT OF ISSUES WITH DIALYSIS AND UNABLE TO TOLERATE FULL DIALYSIS. PATIENT ALSO ADMITS TO DRINKING EXTRA FLUIDS AT TIMES. EDUCATION PROVIDED RELATED TO KIDNEY DISEASE, FLUID RESTRICTIONS, RESPIRATORY DISTRESS. PATIENT CURRENTLY ON 02. PATIENT DOES NOT USE O2 AT HOME. ATTEMPTED TO WEAN O2 DOWN TO 2L/NC. PATIENT HAVING EPISODES OF SHORTNESS OF BREATH AND FEELING LIKE SHE COULDN'T BREATH. BIOX 95% PATIENT USES NEBULIZERS AND INHALERS AT HOME. ORDER RECEIVED FOR BD PROTOCOL FOR RESPIRATORY TO ASSESS. PATIENT CONTINUES TO BE AMBULATORY IN THE ROOM INDEPENDENTLY. PATIENT HAS APPOINTMENTS TOMORROW WITH DR. JOHNSON AND DR KENT OUTPATIENT AND WORRIED ABOUT MISSING APPOINTMENTS.
[2023-01-06 04:11] VITALS: BP 129/107
[2023-01-06 04:31] LABS: Hematocrit 26.8 % (33.0-51.0); Hemoglobin 8.7 g/dL (11.5-16.0)
[2023-01-06 04:59] LABS: Magnesium, Blood 2.2 mg/dL (1.6-2.4)
[2023-01-06 05:00] LABS: Albumin, Blood 3.6 g/dL (3.4-5.0); Anion Gap 10 mmol/L (6-16); Blood Urea Nitrogen 30 mg/dL (8-24); Bun/Creatinine Ratio 7.2 (12.0-20.0); CO2, Blood 27 mmol/L (21-32); Calcium, Blood 9.4 mg/dL (8.5-10.1); Chloride, Blood 102 mmol/L (98-108); Creatinine, Blood 4.16 mg/dL (0.40-1.00); Glomerular Filtration Rate 11 (60-); Glucose, Blood 107 mg/dL (70-99); Sodium, Blood 139 mmol/L (136-145)
[2023-01-06 07:19] VITALS: BP 131/108
--- NOTE | 2023-01-06 12:17 | NUR ---
MARYBETH WAS DISCHARGED TODAY AT 1130, SHE WAS A&O X4, AND MAINTAINING O2 SATS IN THE LOW 90S ON RA. HER IV CATHETER WAS REMOVED, DISCHARGE INSTRUCTIONS WERE PROVIDED, PT CONFIRMED UNDERSTANDING OF INSTRUCTIONS. SHE WAS PICKED UP BY HER SON. MEDICATIONS WERE FAXED TO [facility].
--- NOTE | 2023-01-06 12:20 | NUR ---
STUDENT NURSE DOCUMENTATION. I AGREE WITH AND REVIEWED THE STUDENT RN NEL'S DOCUMENTATION ON THIS PATIENT
== END 2023-01-06 11:41 | disposition home or self-care (01) | DRG 291 ==
LOC: ER 16:50 → MEDS 16:51 → ENPENDDIS 01-06 09:51 → MEDS 01-06 11:41
PROVIDERS: Emergency Medicine; Internal Medicine Nephrology; ADMIT Student in an Organized Health Care Education/Training Program
PROC: 30233N1 Transfusion of Nonautologous Red Blood Cells into Peripheral Vein, Percutaneous Approach (ICD-10-PCS; principal; 2023-01-04)
PROC: 5A1D70Z Performance of Urinary Filtration, Intermittent, Less than 6 Hours Per Day (ICD-10-PCS; 2023-01-05)
DX: I13.2 Hypertensive heart and chronic kidney disease with heart failure and with stage 5 chronic kidney disease, or end stage renal disease (principal); I50.41 Acute combined systolic (congestive) and diastolic (congestive) heart failure; J96.01 Acute respiratory failure with hypoxia; N18.6 End stage renal disease; D63.1 Anemia in chronic kidney disease; E78.5 Hyperlipidemia, unspecified; M19.90 Unspecified osteoarthritis, unspecified site; J44.9 Chronic obstructive pulmonary disease, unspecified; R79.89 Other specified abnormal findings of blood chemistry; E87.6 Hypokalemia; E86.9 Volume depletion, unspecified; F17.210 Nicotine dependence, cigarettes, uncomplicated; Z98.891 History of uterine scar from previous surgery; Z87.81 Personal history of (healed) traumatic fracture; Z98.890 Other specified postprocedural states; Z88.6 Allergy status to analgesic agent; Z88.8 Allergy status to other drugs, medicaments and biological substances; Z79.891 Long term (current) use of opiate analgesic; Z86.73 Personal history of transient ischemic attack (TIA), and cerebral infarction without residual deficits; Z99.2 Dependence on renal dialysis; Z79.899 Other long term (current) drug therapy
CPT/HCPCS: 36415; 36430; 71045; 71260; 80053; 80069; 82947; 83735; 83880; 84100; 84132; 84484; 85014; 85018; 85025; 86850; 86900; 86901; 86923; 93005; 93010; 94640; 94664; 94760; 94762; 96374; 96375; 99284-25; A9270; C8929; G0378; J0881; J3480; J7030; P9016; Q9957; Q9967

== ENCOUNTER → 2023-01-21 | Outpatient (CLI) | payer MEDICARE, OTHER ==
[~2023-01-21] MED LIST changes: +AURYXIA210 MG PO; +PLAVIX75 MG PO
[2023-01-21 16:04] LABS: BASOPHILS ABSOLUTE AUTO 0.16 K/mm3 (0.00-0.23); BASOPHILS PERCENT AUTO 3 % (0-2); EOSINOPHILS ABSOLUTE AUTO 0.23 K/mm3 (0.00-0.68); EOSINOPHILS PERCENT AUTO 5 % (0-6); Hematocrit 24.7 % (33.0-51.0); IMMATURE GRAN ABSOLUTE AUTO 0.02 K/mm3 (0.00-0.10); IMMATURE GRAN PERCENT AUTO 0 % (0-1); LYMPHOCYTES ABSOLUTE AUTO 1.06 K/mm3 (0.84-5.20); LYMPHOCYTES PERCENT AUTO 21 % (21-46); MONOCYTES ABSOLUTE AUTO 0.48 K/mm3 (0.16-1.47); MONOCYTES PERCENT AUTO 9 % (4-13); Mean Corpuscular HGB 32.1 pg (26.0-34.0); Mean Corpuscular HGB Conc 32.4 g/dL (31.5-36.5); Mean Corpuscular Volume 99 fL (80-100); Mean Platelet Volume 8.3 fL (9.1-12.4); NEUTROPHILS PERCENT AUTO 62 % (41-73); NRBC ABSOLUTE 0.03 K/mm3 (0.00-0.02); NRBC Auto 0.6 /100 WBC (0.0-0.2); Platelet Count 413 K/mm3 (150-400); RDW Standard Deviation 71.7 fL (35.1-46.3); Red Blood Cell Count 2.49 M/mm3 (3.80-5.20); White Blood Cell Count 5.15 K/mm3 (4.00-11.30)
== END ==
LOC: LAB 15:59 → LAB SHORT 15:59
PROVIDERS: Physician Assistant
DX: R06.00 Dyspnea, unspecified (principal)
CPT/HCPCS: 85025

== ENCOUNTER 2023-03-26 07:04 | Day surgery (SDC) | payer MEDICARE, OTHER ==
[2023-03-26] VITALS (8 sets, daily range): BP systolic 116–153; BP diastolic 88–110
[~2023-03-26] VITALS: Ht 167.6 cm; Wt 65.3 kg
--- NOTE | 2023-03-26 11:45 | NUR ---
BOTH TR BANDS FROM R RADIAL AIR REMOVED. TOLERATES WELL. NO BLEEDING NOTED. VSS.
--- NOTE | 2023-03-26 12:25 | NUR ---
PT VERBALIZES UNDERSTANDING WRITTEN INSTRUCTIONS. DENIES QUESTIONS. PT DRESSES SELF WITHOUT DIFF. PT TR BANDS REMOVED FROM R RADIAL. DOT DRESSINGS APPLIED. NO BLEEDING OR HEMATMA NOTED. SPLINT AND SLING IN PLACE. VSS. NADN. PT IV DC'D. CATH INTACT. PRESSURE DSG APPLIED. PT DC TO HOME VIA WC BY SON.
== END 2023-03-26 12:30 | disposition home or self-care (01) ==
LOC: MHTC 07:04
DX: T82.858A Stenosis of other vascular prosthetic devices, implants and grafts, initial encounter (principal); I12.0 Hypertensive chronic kidney disease with stage 5 chronic kidney disease or end stage renal disease; N18.6 End stage renal disease; Z99.2 Dependence on renal dialysis; Z87.891 Personal history of nicotine dependence; Z88.6 Allergy status to analgesic agent; Z88.9 Allergy status to unspecified drugs, medicaments and biological substances
CPT/HCPCS: 36902; 37607; 76937; 99152; 99153; C1725; C1769; C1887; C1894; J1644; J2250; J3010; J7030; Q9967

== ENCOUNTER 2023-05-12 12:54 | Day surgery (SDC) | payer MEDICARE, OTHER ==
[~2023-05-12] VITALS: Ht 167.6 cm; Wt 66.5 kg
[2023-05-12] MEDS ORDERED: Calcium Acetat667 MG PO (13:31)
[2023-05-12] MEDS ORDERED: AURYXIA210 MG PO (13:31)
--- NOTE | 2023-05-12 14:35 | NUR ---
05/12/23 1435 Johanne Earl RED AND GREEN SCOPE USED FOR EGD
[2023-05-12 16:06] VITALS: BP 98/79
--- NOTE | 2023-05-12 16:32 | NUR ---
05/12/23 1632 [facility] PATIENT HAD EXTENDED RECOVERY D/T BLOOD PRESSURE AND OXYGEN SATURATION. DR MURRAY IN ROOM FOR FIRST STEPDOWN BLOOD PRESSURE OF 72/61, NO NEW ORDERS RECEIVED FROM DR MURRAY. RN MONITORED BLOOD PRESSURE UNTIL DISCHARGE. BLOOD PRESSURE IMPROVED TO 98/84 AND 98/79 PRIOR TO DISCHARGE. PATIENT PLACED ON 2 LPM O2 VIA NC D/T OXYGEN SATURATION OF 86% AT ONE POINT DURING RECOVERY. PATIENT SUPPLIED WITH INCENTIVE SPIROMETER AND EDUCATED ON USE. PATIENT USED INCENTIVE SPIROMETER SEVERAL TIMES WHILE IN RECOVERY. LUNGS WERE CLEAR TO AUSCULTATION. DISCUSSED CASE WITH DR MURRAY AT 1550, NO NEW ORDERS RECEIVED. PER DR MURRAY'S WRITTEN ORDERS PATIENT OK TO DISCHARGE AT SPO2 90% PATIENT SUSTAINED SPO2 ABOVE 90% PRIOR TO DISCHARGE. PATIENT ENCOURAGED TO USE INCENTIVE SPIROMETER AT HOME. PATIENT ALSO STATED SHE WILL USE HER INHALER LATER PER HER REGULAR SCHEDULE. PATIENT REPORTED NO SHORTNESS OF BREATH OR OTHER ISSUES. PATIENT EXPRESSED READINESS TO GO HOME.
== END 2023-05-12 16:12 | disposition home or self-care (01) ==
LOC: ORSCSDS 12:54
PROVIDERS: Internal Medicine Gastroenterology
PROC: 0DB98ZX Excision of Duodenum, Via Natural or Artificial Opening Endoscopic, Diagnostic (ICD-10-PCS; principal; 2023-05-12 14:15)
PROC: 0D578ZZ Destruction of Stomach, Pylorus, Via Natural or Artificial Opening Endoscopic (ICD-10-PCS; principal; 2023-05-12 14:15)
DX: D50.9 Iron deficiency anemia, unspecified (principal); K31.9 Disease of stomach and duodenum, unspecified; K31.7 Polyp of stomach and duodenum; K22.2 Esophageal obstruction; K31.811 Angiodysplasia of stomach and duodenum with bleeding; I12.0 Hypertensive chronic kidney disease with stage 5 chronic kidney disease or end stage renal disease; N18.6 End stage renal disease; J44.9 Chronic obstructive pulmonary disease, unspecified; Z79.899 Other long term (current) drug therapy; T82.898D Other specified complication of vascular prosthetic devices, implants and grafts, subsequent encounter
CPT/HCPCS: 36415; 80048; 85007; 85027; 85610; 88305; J2704; J7120

== ENCOUNTER → 2023-05-14 | Outpatient (CLI) | payer MEDICARE, OTHER ==
[~2023-05-14] MED LIST changes: +Calcium Acetat667 MG PO
[2023-05-14 15:17] LABS: Hematocrit 34.5 % (33.0-51.0); Hemoglobin 11.1 g/dL (11.5-16.0); Mean Corpuscular HGB 31.2 pg (26.0-34.0); Mean Corpuscular HGB Conc 32.2 g/dL (31.5-36.5); Mean Corpuscular Volume 97 fL (80-100); Mean Platelet Volume 9.6 fL (9.1-12.4); NRBC ABSOLUTE 0.08 K/mm3 (0.00-0.02); NRBC Auto 0.9 /100 WBC (0.0-0.2); Platelet Count 324 K/mm3 (150-400); RDW Coefficient Variation 26.8 % (11.7-14.2); RDW Standard Deviation 96.3 fL (35.1-46.3); Red Blood Cell Count 3.56 M/mm3 (3.80-5.20); White Blood Cell Count 8.56 K/mm3 (4.00-11.30)
[2023-05-14 16:17] LABS: BASOPHILS PERCENT MAN 0 % (0-2); EOSINOPHILS ABSOLUTE MAN 0.17 K/mm3 (0.00-0.68); EOSINOPHILS PERCENT MAN 2 % (0-6); LYMPHOCYTES ABSOLUTE MAN 1.02 K/mm3 (0.84-5.20); LYMPHOCYTES PERCENT MAN 12 % (21-46); MONOCYTES ABSOLUTE MAN 1.54 K/mm3 (0.16-1.47); MONOCYTES PERCENT MAN 18 % (4-13); MYELOCYTE ABSOLUTE MAN 0.08 K/mm3 (0.00-0.00); MYELOCYTE PERCENT MAN 1 % (0-0); NEUTROPHILS ABSOLUTE MAN 5.73 K/mm3 (1.96-9.15); SEG NEUTROPHILS PERCENT MAN 67 % (41-73); TOTAL CELLS COUNTED 100
== END | disposition home or self-care (01) ==
LOC: LAB 10:15 → LAB SHORT 10:15
PROVIDERS: Internal Medicine Hematology & Oncology
DX: D46.1 Refractory anemia with ring sideroblasts (principal)
CPT/HCPCS: 85025

== ENCOUNTER → 2023-05-28 | Outpatient (CLI) | payer MEDICARE, OTHER ==
[2023-05-29 11:20] LABS: Candida species (DNA Probe) Negative (NEGATIVE); G. vaginalis (DNA Probe) Positive (NEGATIVE); T. vaginalis (DNA Probe) Negative (NEGATIVE)
== END | disposition home or self-care (01) ==
LOC: LAB SHORT 17:15 → LAB 17:15
PROVIDERS: Family Medicine
DX: N89.8 Other specified noninflammatory disorders of vagina (principal)
CPT/HCPCS: 87480; 87510; 87660

== ENCOUNTER 2023-06-12 06:57 | Day surgery (SDC) | payer MEDICARE, OTHER ==
[~2023-06-12] VITALS: Ht 167.6 cm; Wt 67.6 kg
[2023-06-12 07:33] VITALS: BP 113/93
[2023-06-12 07:34] VITALS: BP 113/93
[2023-06-12 09:56] VITALS: BP 123/101
[2023-06-12 10:02] VITALS: BP 129/107
[2023-06-12 10:15] VITALS: BP 114/99
[2023-06-12 10:30] VITALS: BP 110/94
--- NOTE | 2023-06-12 11:23 | NUR ---
PT VERBALIZED UNDERSTANDING OF WRITTEN AND VERBAL D/C INST. IV REMOVED. PT TAKEN OUT OF THE HRT CENTER VIA W/C.
== END 2023-06-12 11:35 | disposition home or self-care (01) ==
LOC: MHTC 06:57
DX: T82.898D Other specified complication of vascular prosthetic devices, implants and grafts, subsequent encounter (principal); I12.0 Hypertensive chronic kidney disease with stage 5 chronic kidney disease or end stage renal disease; N18.6 End stage renal disease; Z87.891 Personal history of nicotine dependence; Z88.6 Allergy status to analgesic agent; Z88.8 Allergy status to other drugs, medicaments and biological substances; Z79.899 Other long term (current) drug therapy; Y83.8 Other surgical procedures as the cause of abnormal reaction of the patient, or of later complication, without mention of misadventure at the time of the procedure
CPT/HCPCS: 36902; 37607; 76937; 99152; 99153; C1725; C1769; C1887; C1894; J1644; J2250; J3010; J7030; J7040; Q9967

== ENCOUNTER 2023-07-31 07:03 | Day surgery (SDC) | payer MEDICARE, OTHER ==
[~2023-07-31] VITALS: Ht 167.6 cm; Wt 64.4 kg
[2023-07-31] VITALS (10 sets, daily range): BP systolic 105–136; BP diastolic 88–112
[~2023-07-31 07:03] MED LIST changes: +FURO80 PO; +MIRT15 PO
--- NOTE | 2023-07-31 12:30 | NUR ---
PT DRESSES SELF WITHOUT DIFF. PT IV DC'D. CATH INTACT. PRESSURE DSG APPLIED. NO BLEEDING NOTED. VSS. PT L BRACHIAL/ UPPER ARM CONTINUE TO BE STABLE. NO BLEEDING NOTED. PT VERBALIZES UNDERSTANDING WRITTEN INSTRUCTIONS. DENIES QUESTIONS. PT DC TO HOME VIA DAUGHTER VIA WC
== END 2023-07-31 12:35 | disposition home or self-care (01) ==
LOC: MHTC 07:03
DX: T82.898A Other specified complication of vascular prosthetic devices, implants and grafts, initial encounter (principal); N18.6 End stage renal disease
CPT/HCPCS: 36901; 36909; 99152; 99153; C1769; C1887; C1889; C1894; J1644; J2250; J3010; J7030; Q9967

== ENCOUNTER 2023-11-22 10:57 | Observation (INO) | payer MEDICARE, OTHER ==
[2023-11-22] VITALS (12 sets, daily range): BP systolic 82–118; BP diastolic 60–88
[~2023-11-22] VITALS: Ht 170.2 cm; Wt 60.4 kg
[~2023-11-22 10:57] MED LIST changes: +ARTIFICIAL TEA1 EAC1 BOTHEYES; +Aspir 8181 MG PO; +ERYT.5TO RIGHTEYE; +OFLOXACIN5 M9 RIGHTEYE; +SULTRIDS PO; +SYSTANE 0.4-0.315 ML BOTHEYES; +TEARS LUBRICANT15 ML BOTHEYES; +VALA500 PO; +VALACYCLOVIR1000 MG PO
[2023-11-22 11:25] LABS: BASOPHILS ABSOLUTE AUTO 0.23 K/mm3 (0.00-0.23); BASOPHILS PERCENT AUTO 3 % (0-2); EOSINOPHILS ABSOLUTE AUTO 0.37 K/mm3 (0.00-0.68); EOSINOPHILS PERCENT AUTO 5 % (0-6); Hematocrit 25.6 % (33.0-51.0); Hemoglobin 8.4 g/dL (11.5-16.0); IMMATURE GRAN ABSOLUTE AUTO 0.05 K/mm3 (0.00-0.10); IMMATURE GRAN PERCENT AUTO 1 % (0-1); LYMPHOCYTES ABSOLUTE AUTO 0.49 K/mm3 (0.84-5.20); LYMPHOCYTES PERCENT AUTO 7 % (21-46); MONOCYTES ABSOLUTE AUTO 0.87 K/mm3 (0.16-1.47); MONOCYTES PERCENT AUTO 12 % (4-13); Mean Corpuscular HGB Conc 32.8 g/dL (31.5-36.5); Mean Corpuscular Volume 107 fL (80-100); Mean Platelet Volume 8.6 fL (9.1-12.4); NEUTROPHILS ABSOLUTE AUTO 5.42 K/mm3 (1.96-9.15); NEUTROPHILS PERCENT AUTO 73 % (41-73); NRBC ABSOLUTE 0.09 K/mm3 (0.00-0.02); NRBC Auto 1.2 /100 WBC (0.0-0.2); Platelet Count 383 K/mm3 (150-400); RDW Coefficient Variation 27.3 % (11.7-14.2); White Blood Cell Count 7.43 K/mm3 (4.00-11.30)
[2023-11-22 11:44] LABS: Albumin, Blood 3.6 g/dL (3.4-5.0); Bilirubin, Total 1.9 mg/dL (0.1-1.0); Bun/Creatinine Ratio 3.2 (12.0-20.0); Calcium, Blood 8.9 mg/dL (8.5-10.1); Creatinine, Blood 1.57 mg/dL (0.40-1.00); Globulin, Blood 3.7 g/dL (2.2-4.0); Potassium, Blood 3.4 mmol/L (3.5-5.5); Total Protein, Blood 7.3 g/dL (6.4-8.2)
[2023-11-22] MEDS ORDERED: Hydroxyzine HCl50 MG PO (12:37)
[2023-11-22] MEDS ORDERED: Norco 5-325 Ta1 EACH PO (12:38)
[2023-11-22] MEDS ORDERED: PANT40 PO (12:38)
[2023-11-22 12:49] LABS: Influenza A, PCR NEGATIVE (NEGATIVE); Influenza B, PCR NEGATIVE (NEGATIVE); Resp Syncytial Virus, PCR NEGATIVE (NEGATIVE); SARS-Cov-2 (COVID-19) PCR, MMC NEGATIVE (NEGATIVE)
[2023-11-22] MEDS ORDERED: Ondansetron HCl 2 MG / ML 2ML Vial IV PRN (14:20)
[2023-11-22] MEDS ORDERED: HYDROcodone 5-APAP 325 TAB PO PRN (14:40)
[2023-11-22] MEDS ORDERED: HyDROXyzine HCl 25 MG Tab PO SCH (14:40)
[2023-11-22] MEDS ORDERED: Peg 400/Hypromellose/Glycerin 15 DROP/ML BTL BOTHEYES PRN (14:55)
[2023-11-22] MEDS ORDERED: Pantoprazole Sodium 20 MG Tab PO SCH (15:00)
[2023-11-22 15:03] LABS: Thyroid Stimulating Hormone 0.575 uIU/mL (0.360-4.800)
[2023-11-22] MEDS ORDERED: Darbepoetin Alfa in Polysorbat 25 MCG/0.42 ML Syringe SC SCH (16:00)
[2023-11-22] MEDS ORDERED: Durezol5 ML (16:35)
[2023-11-22] MEDS ORDERED: Cyclogyl 1% Opth2 ML (16:36)
[2023-11-22] MEDS ORDERED: Erythromycin 0.5% Opth Oint 3.5 gm RIGHTEYE SCH (18:00)
--- NOTE | 2023-11-22 18:00 | NUR ---
SHIFT SUMMARY PT ALERT, RESPONDS TO NAME, BUT UNABLE TO ANSWER QUESTIONS. VSS, BEDREST, TOLERATING PO, VOIDING, AND DENIED PAIN. BED ALARM ON FOR SAFETY. CALL LIGHT WITHIN REACH AND DAUGHTER AT BEDSIDE WHO ASSISTS W/ CARE.
[2023-11-22] MEDS ORDERED: Anticoagulant Sod Citrate Soln 3 ML SYR INJ PRN (19:50)
[2023-11-23] VITALS (17 sets, daily range): BP systolic 79–118; BP diastolic 55–90
[2023-11-23] MEDS ORDERED: NS 500 ML IV ONE (03:45)
--- NOTE | 2023-11-23 04:12 | NUR ---
PT ALERT ORIENTED TO PERSON AND ANSWERS SIMPLE YES NO QUESTIONS, UNABLE TO ANSWER QUESTIONS APPROPRIATELY, APPEARS TO KNOW WHAT SHE WANTS TO SAY BUT UNABLE TO ARTICULATE THE WORDS AND ACTUALLY SAY THEM. THIS AM BLOOD PRESSURE 82/59 MAP 67, DR. SARAH NOTIFIED THAT PT HAD ALSO RECEIVED DIALYSIS LAST NIGHT AND ORDERED A 500 ML BOLUS X1. WILL RECHECK B/P AFTERWARDS. BUT REST OF PT VITALS WNL. PT DOES NOT APPEAR TO SHOW CHANGES FROM BASELINE AND SHAKES HER HEAD NO TO THE QUESTION IF SHE FEELS LIGHTHEADED OR FUNNY AT ALL. PT HAD SAT UP ON EDGE OF BED, TO DRINK DECAF COFFEE AND EAT A SNACK LAST NIGHT, WAS ABLE TO TELL ME WHAT SHE WANTS, BUT NOT ABLE TO ANSWER QUESTIONS.
[2023-11-23 06:01] LABS: BASOPHILS ABSOLUTE AUTO 0.19 K/mm3 (0.00-0.23); BASOPHILS PERCENT AUTO 2 % (0-2); EOSINOPHILS ABSOLUTE AUTO 0.46 K/mm3 (0.00-0.68); EOSINOPHILS PERCENT AUTO 5 % (0-6); Hematocrit 22.9 % (33.0-51.0); Hemoglobin 7.5 g/dL (11.5-16.0); IMMATURE GRAN ABSOLUTE AUTO 0.05 K/mm3 (0.00-0.10); IMMATURE GRAN PERCENT AUTO 1 % (0-1); LYMPHOCYTES ABSOLUTE AUTO 0.86 K/mm3 (0.84-5.20); LYMPHOCYTES PERCENT AUTO 9 % (21-46); MONOCYTES ABSOLUTE AUTO 1.43 K/mm3 (0.16-1.47); MONOCYTES PERCENT AUTO 15 % (4-13); Mean Corpuscular HGB 35.2 pg (26.0-34.0); Mean Corpuscular HGB Conc 32.8 g/dL (31.5-36.5); Mean Corpuscular Volume 108 fL (80-100); Mean Platelet Volume 8.6 fL (9.1-12.4); NEUTROPHILS ABSOLUTE AUTO 6.29 K/mm3 (1.96-9.15); NEUTROPHILS PERCENT AUTO 68 % (41-73); NRBC ABSOLUTE 0.09 K/mm3 (0.00-0.02); Platelet Count 353 K/mm3 (150-400); RDW Standard Deviation 108.6 fL (35.1-46.3); Red Blood Cell Count 2.13 M/mm3 (3.80-5.20); White Blood Cell Count 9.28 K/mm3 (4.00-11.30)
[2023-11-23 06:19] LABS: Albumin, Blood 3.5 g/dL (3.4-5.0); Anion Gap 7 mmol/L (3-11); Blood Urea Nitrogen 7 mg/dL (8-24); Bun/Creatinine Ratio 3.9 (12.0-20.0); CO2, Blood 33 mmol/L (21-32); Calcium, Blood 8.6 mg/dL (8.5-10.1); Chloride, Blood 101 mmol/L (98-108); Creatinine, Blood 1.81 mg/dL (0.40-1.00); Glomerular Filtration Rate 30 (60-); Glucose, Blood 87 mg/dL (70-99); Phosphorus, Blood 2.8 mg/dL (2.5-4.9); Potassium, Blood 3.3 mmol/L (3.5-5.5); Sodium, Blood 138 mmol/L (136-145)
[2023-11-23] MEDS ORDERED: Potassium Chloride 10 Meq Tablet SA PO ONE ×2 (07:10→12:30)
[2023-11-23] MEDS ORDERED: Midodrine 5 MG Tab PO PRN (07:15)
[2023-11-23] MEDS ORDERED: Cholecalciferol 1000 Unit Tablet (=25MCG) PO SCH (09:00)
[2023-11-23] MEDS ORDERED: ValACYClovir HCL 500 MG Tab PO SCH (09:00)
[2023-11-23] MEDS ORDERED: Atorvastatin 40 MG Tab PO SCH (09:00)
[2023-11-23] MEDS ORDERED: Vancomycin HCL 1,000 MG in NS 100 ML IV ONE (12:30)
[2023-11-23 18:38] LABS: Source, Urine Clean Catch
[2023-11-23 18:50] LABS: Appearance, Urine Hazy (Clear); Blood, Urine Neg (Neg); Color, Urine Amber (P-Yellow); Glucose Qualitative, Urine Neg (Neg); Ketones, Urine 1+ (Neg); Leukocyte Esterase, Urine 3+ (Neg); Nitrite, Urine Neg (Neg); Protein, Urine 3+ (Neg); Urobilinogen, Urine 3+ (Normal)
[2023-11-23 18:53] LABS: Bilirubin, Urine 1+ (Neg)
[2023-11-23 19:10] LABS: Bacteria Many /hpf; Hyaline Casts 0-2 /lpf (0-2); Red Blood Cells, Urine Not Seen /hpf (0-2); Squamous Epithelial Cells Mod /hpf (Few)
--- NOTE | 2023-11-23 19:51 | NUR ---
PT IS ALERT. ORIENTED TO SELF AND FAMILY. THE PT IS UP WITH MINIMAL ASSIST TO THE BATHROOM. THE PT DID VOID THIS AFTERNOON AND A URINE SAMPLE WAS COLLECTED AND SENT TO LAB. THE PT HAD DIALYSIS TODAY. THE PT WAS MEDICATED FOR PAIN X2 TODAY FOR CHRONIC BACK PAIN. CALL LIGHT IN REACH. FAMILY AT THE BEDSIDE. REPORT GIVEN TO THE NIGHT RN
[2023-11-23] MEDS ORDERED: HyDROXyzine HCl 25 MG Tab PO ONE (20:35)
[2023-11-24] VITALS (15 sets, daily range): BP systolic 83–108; BP diastolic 45–82
[2023-11-24 05:04] LABS: Hematocrit 24.6 % (33.0-51.0); Hemoglobin 8.1 g/dL (11.5-16.0)
--- NOTE | 2023-11-24 05:35 | NUR ---
SHIFT SUMMARY: MARYBETH IS A&0X2-3. PT IS SIGNIFICANTLY MORE VOCAL THIS MORNING, SPEAKING IN FULL SENTENCES, AND ABLE TO STATE NAME//AND RECALL THAT HER CHILDREN WERE HERE YESTERDAY. SHE IS TOLERATING PO INTAKE WELL, IS A ONE-PERSON ASSIST TO THE BATHROOM. PT ATTEMPTED TO URINATE THIS SHIFT BUT STATED THAT SHE WAS UNABLE TO. PT'S FAMILY REPORTS THAT PT MAKES URINE INFREQUENTLY. PT RESTED QUIETLY IN BED FOR SEVERAL HOURS BEFORE MOVING TO THE CHAIR FOR A COUPLE OF HOURS, THEN BACK TO THE BED. BED AND CHAIR ALARMS ON FOR SAFETY. PT IS LYING IN BED WITH THE CALL LIGHT IN REACH, BED IN LOWEST POSITION. WILL GIVE REPORT TO DAY SHIFT RN.
[2023-11-24 05:44] LABS: Albumin, Blood 3.7 g/dL (3.4-5.0); Anion Gap 9 mmol/L (3-11); Blood Urea Nitrogen 13 mg/dL (8-24); Bun/Creatinine Ratio 5.1 (12.0-20.0); CO2, Blood 32 mmol/L (21-32); Chloride, Blood 99 mmol/L (98-108); Creatinine, Blood 2.57 mg/dL (0.40-1.00); Glomerular Filtration Rate 20 (60-); Glucose, Blood 83 mg/dL (70-99); Magnesium, Blood 2.1 mg/dL (1.6-2.4); Phosphorus, Blood 2.4 mg/dL (2.5-4.9); Potassium, Blood 3.7 mmol/L (3.5-5.5); Sodium, Blood 136 mmol/L (136-145)
[2023-11-24] MEDS ORDERED: Sodium Phosphate 10 MM in Dextrose 5% 250 ML IV STA (06:18)
[2023-11-24] MEDS ORDERED: Midodrine 5 MG Tab PO PRN (07:15)
[2023-11-24] MEDS ORDERED: CefTRIAXone Sodium 1,000 MG in NS 100 ML IV SCH (07:19)
[2023-11-24] MEDS ORDERED: Anticoagulant Sod Citrate Soln 3 ML SYR INJ PRN (07:45)
[2023-11-24] MEDS ORDERED: Albumin (Human) 25gm/100ml 100 ML IV PRN (07:55)
[2023-11-24] MEDS ORDERED: VITAMIN D31000 UNI1 PO (11:14)
--- NOTE | 2023-11-24 16:55 | NUR ---
PT IS A/OX3, PLEASANT AND COOPERATIVE. PT THIS AM WAS MUCH MORE AWAKE AND TALKATIVE, ANSWERING QUESTIONS APPROPRIATLY COMPARED TO YESTERDAY. THE PT IS UP WITH ASSIST TO THE CHAIR AND TO THE BATHROOM. THE PT HAD DIALYSIS TODAY. THE PT WORKED WITH PHYSICAL THERAPY TODAY AFTER DIALYSIS. PT WAS DISCHARGED TO HOME, HOWEVER, AFTER PHYSICAL THERAPY IT WAS DETERMINED THAT THE PT WOULD BENIFIT TO TRANSFER TO REHAB FIRST. DISCHARGE IS NOW POSTPONED UNTIL TOMORROW. PT IS UP IN THE CHAIR AT THIS TIME. CALL LIGHT IN REACH. FAMILY IS AT THE BEDSIDE
[2023-11-24] MEDS ORDERED: HyDROXyzine HCl 25 MG Tab PO PRN (18:40)
[2023-11-25] VITALS (15 sets, daily range): BP systolic 84–150; BP diastolic 65–101
[2023-11-25 05:05] LABS: Hematocrit 24.3 % (33.0-51.0); Hemoglobin 8.1 g/dL (11.5-16.0)
[2023-11-25 06:00] LABS: Albumin, Blood 3.9 g/dL (3.4-5.0); Anion Gap 10 mmol/L (3-11); Blood Urea Nitrogen 17 mg/dL (8-24); Bun/Creatinine Ratio 5.8 (12.0-20.0); CO2, Blood 29 mmol/L (21-32); Calcium, Blood 9.7 mg/dL (8.5-10.1); Chloride, Blood 97 mmol/L (98-108); Creatinine, Blood 2.95 mg/dL (0.40-1.00); Glomerular Filtration Rate 17 (60-); Glucose, Blood 89 mg/dL (70-99); Magnesium, Blood 1.9 mg/dL (1.6-2.4); Phosphorus, Blood 3.2 mg/dL (2.5-4.9); Potassium, Blood 3.4 mmol/L (3.5-5.5); Sodium, Blood 133 mmol/L (136-145)
--- NOTE | 2023-11-25 06:27 | NUR ---
SHIFT SUMMARY: MARYBETH IS A&OX2-3. VSS, NO ACUTE EVENTS OVERNIGHT. PT IS MUCH MORE CONVERSATIONAL THIS MORNING COMPARED TO LAST NIGHT. SHE COMPLAINED OF BACK PAIN THIS MORNING AND WAS ABLE TO RETURN TO SLEEP AFTER BEING MEDICATED PER MAR. SHE IS TOLERATING PO INTAKE WELL, FAMILY STATES THAT PT PREFERS TO SNACK INSTEAD OF EATING FULL MEALS. IV TO RIGHT AC PATENT. SHE IS A ONE-PERSON ASSIST WITH THE FWW TO THE BATHROOM OR BEDSIDE CHAIR. SHE IS LYING IN BED WITH THE CALL LIGHT IN REACH, BED IN LOWEST POSITION. WILL GIVE REPORT TO DAY SHIFT RN.
[2023-11-25] MEDS ORDERED: Potassium Chloride 20 MEQ TabCR PO ONE (06:35)
[2023-11-25] MEDS ORDERED: Anticoagulant Sod Citrate Soln 3 ML SYR INJ PRN (07:40)
[2023-11-25 12:43] LABS: Influenza A, PCR NEGATIVE (NEGATIVE); Influenza B, PCR NEGATIVE (NEGATIVE); Resp Syncytial Virus, PCR NEGATIVE (NEGATIVE); SARS-Cov-2 (COVID-19) PCR, MMC NEGATIVE (NEGATIVE)
--- NOTE | 2023-11-25 17:11 | NUR ---
PT DISCHARGED THE PT WAS DC'D TO [facility], REPORT WAS GIVEN TO THE ACCEPTING RN. THE PT WAS TRANSFERED VIA WHEELCHAIR ACCOMPANIED BY [facility] AND HER FAMILY. THE PT WAS MEDICATED FOR PAIN JUST PRIOR TO DC
== END 2023-11-25 16:41 ==
LOC: ER 10:57 → MEDS 10:58
PROVIDERS: Emergency Medicine; Internal Medicine; Internal Medicine Nephrology; ADMIT Internal Medicine
DX: G92.8 Other toxic encephalopathy (principal); J96.01 Acute respiratory failure with hypoxia; I13.2 Hypertensive heart and chronic kidney disease with heart failure and with stage 5 chronic kidney disease, or end stage renal disease; I50.9 Heart failure, unspecified; N18.6 End stage renal disease; D63.1 Anemia in chronic kidney disease; J44.9 Chronic obstructive pulmonary disease, unspecified; E87.6 Hypokalemia; E87.1 Hypo-osmolality and hyponatremia; H10.9 Unspecified conjunctivitis; E87.70 Fluid overload, unspecified; R60.0 Localized edema; F17.200 Nicotine dependence, unspecified, uncomplicated; Z99.2 Dependence on renal dialysis; Z79.899 Other long term (current) drug therapy; Z88.6 Allergy status to analgesic agent
CPT/HCPCS: 0241U; 36415; 70450; 71045; 80053; 80069; 80202; 81001; 82140; 82306; 82607; 82746; 82947; 83605; 83735; 84443; 85014; 85018; 85025; 87040; 87086; 94760; 96365; 96366; 96367; 96376; 97110; 97161; 97530; 99285-25; A9270; C9113; G0257; G0378; J0696; J0881; J3370; J7040; J7060; P9047